=== PATIENT | male | born 1965 | race Caucasian/White ===

== ENCOUNTER → 2021-09-21 10:00 | Outpatient (BNVA) | payer OTHER, SELFPAY | PROVIDERS: Visit Provider Nurse Practitioner Family | DX: Z20.822 Contact with and (suspected) exposure to COVID-19 (principal) | CPT/HCPCS: 87635 ==

== ENCOUNTER 2021-09-27 14:15 | Outpatient (CLI) | payer SELFPAY ==
[2021-09-27 08:53] VITALS: BMI 30.4
[2021-09-27 16:13] VITALS: BP 118/79; PULSE 96; RESP 20; TEMP 36.9; O2SAT 95
== END 2021-09-27 14:16 | disposition home or self-care (01) ==
LOC: OPS 14:17
PROVIDERS: Visit Provider Nurse Practitioner Family
DX: U07.1 COVID-19 (principal)
CPT/HCPCS: 96365

== ENCOUNTER → 2022-03-14 15:31 | Outpatient (BNVA) | payer OTHER, SELFPAY | PROVIDERS: Visit Provider Nurse Practitioner Family | DX: R50.9 Fever, unspecified (principal); R05.9 Cough, unspecified; J98.8 Other specified respiratory disorders | CPT/HCPCS: 71046; 80053; 85025; 87400; 87635 ==

== ENCOUNTER → 2022-03-15 11:19 | Outpatient (BNVA) | payer OTHER, SELFPAY | PROVIDERS: Visit Provider Nurse Practitioner Family | DX: R50.9 Fever, unspecified (principal); R05.9 Cough, unspecified; J98.8 Other specified respiratory disorders; Z20.822 Contact with and (suspected) exposure to COVID-19 | CPT/HCPCS: 87635 ==

== ENCOUNTER 2024-10-30 16:56 | Inpatient (IN) | payer OTHER, SELFPAY ==
[2024-10-30] VITALS (21 sets, daily range): BP systolic 144–166; BP diastolic 85–94; PULSE 107–128; RESP 2–56; TEMP 37.1–38.2; O2SAT 85–95; BMI 28.8; BMI 29.2
--- NOTE | 2024-10-30 17:01 | ECG_ITS ---
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 Measurements Intervals [place] Rate: 116 P: 68 MI: 146 QRS: 31 QRSD: 90 T: 41 QT: 289 QTc: 403 Interpretive Statements SINUS TACHYCARDIA MODERATE ST DEPRESSION [0.05+ mV ST DEPRESSION] Compared to ECG 01/29/2017 18:16:26 ST (T wave) deviation now present Sinus rhythm no longer present Electronically Signed On 11-02-2024 08:02:17 COACH by Sal Henao M.D. [email or web address]
--- NOTE | 2024-10-30 17:10 | ED_ITS ---
HPI - SOB/Dyspnea 2 General: Chief Complaint: Shortness of Breath/Dyspnea Stated Complaint: SOB Time Seen by Provider: 10/30/24 17:09 History of Present Illness: HPI Narrative: 59-year-old male presents emergency room in acute respiratory distress. His oxygen saturations are in the 70s on room air and he has been profoundly short of breath for the last 24 hours. 2 weeks ago patient was seen and had influenza A. Subsequently was seen at a hospital in [place] while he was traveling was thought to have a secondary pneumonia and was started on Zithromax and another antibiotic which she believes is likely cefdinir. He completed the course of those antibiotics and began having more symptoms he seen his primary care doctor and was started on Levaquin yesterday. He was also given albuterol and budesonide nebulizers. Despite this he continues to have progressively worsening send symptoms. He does have a moderately productive cough he has not had any hemoptysis no history of any heart failure no history of DVT or PE. Associated symptoms: Reports chest congestion; Deny abdominal pain, chest pain or fever(s) Related Data Home Medications ?Medication ?Instructions ?Recorded ?Confirmed albuterol sulfate 90 mcg/actuation inhalation 10/22/24 10/28/24 aerosol inhaler benzonatate 100 mg capsule mg PO 10/22/24 10/28/24 Previous Rx's ?Medication ?Instructions ?Recorded prednisone 20 mg tablet See Rx Instructions .Route 0 10/22/24 .COMPLEX #14 tabs Nebulizer machine and supplies #1 ea 10/28/24 budesonide 0.5 mg/2 mL suspension 0.5 mg (2 mL) inhala tion BID #60 mL 10/28/24 for nebulization ipratropium 0.5 mg-albuterol 3 mg 3 ml inhalation 6XD PRN shortness 10/28/24 (2.5 mg base)/3 mL nebulization of breath or wheezing #90 mL soln Allergies Allergy/AdvReac Type Severity Reaction Status Date / Time No Known Allergies Allergy Verified 10/30/24 17:08 Review of Systems 2 Const: Denies: fever(s) or chills Card: Denies: chest pain Resp: Reports: dyspnea, wheezing and chest congestion GI: Denies: abdominal pain : Denies: dysuria, urinary frequency or urinary urgency Musc: Denies: neck pain or back pain Skin/Breast: Denies: rash PFSH ED 2 PFSH: Medical History Essential (primary) hypertension Surgical History History of hand surgery History of shoulder surgery left Family History Other Cancer Denies family history of Diabetes Hypertension Stroke Social History Smoking and tobacco/nicotine status: former use of tobacco/nicotine Second hand smoke exposure: No Alcohol intake: never Substance/Drug Use: never Adopted: No Caregiver/support person: No Lives independently: Yes Household members: spouse Housing: House Marital status: Number of children: 2 service: No Current occupational status: employed Do you think of yourself as: Straight/Heterosexual Current gender identity: Male Physical Exam 2 Const: GENERAL APPEARANCE: cooperative ORIENTATION/CONSCIOUSNESS: Yes awake, Yes oriented to person, Yes oriented to place and Yes oriented to time HENMT: COMMON NORMALS: normocephalic, atraumatic and hearing grossly normal bilaterally HEAD & SCALP: normocephalic and atraumatic Resp: EFFORT & INSPECTION: Yes tachypneic, Yes labored and Yes uses accessory muscles AUSCULTATION: rhonchi (Most prominent at left base) and wheezes Cardio: COMMON NORMALS: regular rhythm and No murmurs present (Cardio) R ATE: tachycardic RHYTHM: regular rhythm GI: COMMON NORMALS: Soft to palpation and No hepatosplenomegaly present A USCULTATION: Yes normoactive bowel sounds PALPATION: Yes Soft to palpation, No Tenderness to palpation present (GI), No Guarding due to palpation present (GI) and Yes No hepatosplenomegaly present Extremity: COMMON NORMALS: normal to inspection, capillary refill normal, no clubbing, cyanosis or edema, no calf tenderness and no pedal edema Neuro: SENSORIUM/ORIENTATION: Yes oriented to person, Yes oriented to place and Yes oriented to time Skin: COMMON NORMALS: no rashes or lesions noted GENERAL SKIN EXAM: no rashes or lesions noted Course 2 Vital Signs: Vital signs: Vital Signs Temperature 101.4 F H 10/31/24 04:00 Pulse Rate 116 H 10/31/24 06:17 Respiratory Rate 38 H 10/31/24 06:17 Blood Pressure 155/103 10/31/24 04:00 Pulse Oximetry 93 10/31/24 06:17 Oxygen Delivery Me thod Heated High Flow 10/31/24 06:17 Oxygen Flow Rate 60 10/31/24 06:17 Fraction of Inspir ed Oxygen 60 10/31/24 06:17 MDM - SOB/Dyspnea Medical Decision Making Acute respiratory failure with pneumonia. Patient chest x-ray is appearance of ARDS. Discussed Dr. Hamm will admit to ICU transition him to heated high flow. Labs and imaging reviewed. There is no evidence of PE on the CTA of his chest. Significant leukocytosis. Cultures including sputum and blood have been done. Will initiate on linezolid and cefepime. Lactic acid in normal range. Lab Data 10/31/24 03:18 10/31/24 03:18 Labs/Radiology: Radiology Impressions Chest X-Ray 10/30/24 17:11 IMPRESSION: Extensive bilateral airspace opacities, suggestive of multifocal pneumonia including COVID-19 pneumonia. Chest CTA 10/30/24 17:51 IMPRESSION: 1. Negative for pulmonary embolus. 2. Extensive bilateral consolidative opacities, which may represent extensive pulmonary edema, hemorrhage or acute interstitial pneumonitis. Laboratory Results WBC 20.52 10^3/uL (3.29-11.43) H 10/30/24 17:24 RBC 4.31 10^6/uL (3.85-5.65) 10/30/24 17:24 Hgb 12.50 g/dL (11.27-16.99) 10/30/24 17:24 Hct 39.0 % (37-53) 10/30/24 17:24 MCV 90.5 fl (82-101) 10/30/24 17:24 MCH 29.0 pg (27-33) 10/30/24 17:24 MCHC 32.1 g/dL (30-55) 10/30/24 17:24 RDW 14.8 % (12.1-15.1) 10/30/24 17:24 Plt Count 794 10^3/cmm (157-399) H 10/30/24 17:24 MPV 8.8 fL (7.4-10.4) 10/30/24 17:24 Neut % (Auto) 79.9 % 10/30/24 17:24 Lymph % (Auto) 4.2 % 10/30/24 17:24 Mcmullen % (Auto) 10.1 % 10/30/24 17:24 Eos % (Auto) 1.4 % 10/30/24 17:24 Baso % (Auto) 0.6 % 10/30/24 17:24 Neut # (Auto) 16.38 10^3/uL (1.8-7.7) H 10/30/24 17:24 Lymph # (Auto) 0.9 10^3/uL (0.8-4.8) 10/30/24 17:24 Mcmullen # (Auto) 2.1 10^3/uL (0.2-0.9) H 10/30/24 17:24 Eos # (Auto) 0.3 10^3/uL (0.0-0.8) 10/30/24 17:24 Baso # (Auto) 0.1 10^3/uL (0.0-0.1) 10/30/24 17:24 Nucleated RBC % (auto) 0 % 10/30/24 17: Nucleated RBCs # 0.0 /100WBC 10/30/24 17:24 Specimen Type Arterial 10/30/24 17:11 Sample Site Radial, left 10/30/24 17:11 ABG pH 7.48 (7.35-7.45) H 10/30/24 17:11 ABG pCO2 32.7 mmHg (35-45) L 10/30/24 17:11 ABG pO2 56.6 mmHg (80.0-100.0) L 10/30/24 17:11 ABG HCO3 24.5 mmol/L (22-26) 10/30/24 17:11 ABG O2 Saturation 91.4 10/30/24 17:11 ABG Base Excess 1.5 mmol/L (-2.0-2.0) 10/30/24 17:11 Speedy Test Pos 10/30/24 17:11 A-a O2 Gradient 6.7 mmHg (5-10) 10/30/24 17:11 Hematocrit 37.4 % (42-52) L 10/30/24 17:11 Hgb O2 Saturation 89.1 % (95-100) L 10/30/24 17:11 Carboxyhemoglobin 1.7 %THgb (0.4-20.1) 10/30/24 17:11 Methemoglobin 0.8 % (0.4-1.5) 10/30/24 17:11 Total Hemoglobin 12.2 g/dL (14-18) L 10/30/24 17:11 Sodium 137.0 mmol/L (131-143) 10/30/24 17:11 Potassium 3.9 mmol/L (3.5-5.0) 10/30/24 17:11 Glucose 134.0 mg/dL (70-115) H 10/30/24 17:11 Ionized Calcium 1.2 mmol/L (1.1-1.4) 10/30/24 17:11 O2 Delivery Device Nc 10/30/24 17:11 O2 Liters/Min 5.0 % 10/30/24 17:11 Microwave Oven Assembler ID Walci 10/30/24 17:11 Sodium 142 mmol/L (136-145) 10/30/24 17:24 Potassium 4.9 mmol/L (3.5-5.1) 10/30/24 17:24 Chloride 104 mmol/L (98-107) 10/30/24 17:24 Carbon Dioxide 23 mmol/L (22-29) 10/30/24 17:24 Anion Gap 19.9 (5-19) H 10/30/24 17:24 BUN 14 mg/dL (6-20) 10/30/24 17:24 Creatinine 0.5 mg/dL (0.7-1.2) L 10/30/24 17:24 GFR Calculation 170.8 mL/min (90-130) H 10/30/24 17:24 Glucose 127 mg/dL (65-115) H 10/30/24 17:24 Calculated Osmolality 296 mOsm/kg (285-295) H 10/30/24 17:24 Lactic Acid 2.3 mmol/L (0.5-2.2) H 10/30/24 17:24 Calcium 8.6 mg/dL (8.5-10.5) 10/30/24 17:24 Total Bilirubin 2.7 mg/dL (0.15-1.2) H 10/30/24 17:24 AST 43 U/L (0-40) H 10/30/24 17:24 ALT 120 U/L (0-41) H 10/30/24 17:24 Alkaline Phosphatase 313 U/L (40-130) H 10/30/24 17:24 C-Reactive Protein 251.2 mg/L (0.0-4.9) H 10/30/24 17:26 Total Protein 6.6 g/dL (6.6-8.7) 10/30/24 17:24 Albumin 3.0 g/dL (3.5-5.2) L 10/30/24 17:24 Globulin 3.6 g/dL (1.3-4.6) 10/30/24 17:24 Procalcitonin 0.45 ng/mL (0-0.5) 10/30/24 17:26 Influenza A (PCR) Negative (Negative) 10/30/24 17:40 Influenza Type B (PCR) Negative (Negative) 10/30/24 17:40 RSV (PCR) Negative (Negative) 10/30/24 17:40 SARS-CoV-2 (PCR) Negative (Negative) 10/30/24 17:40 All radiology interpretation(s) finalized by discharge Critical Care Time 2 Critical Care Time: Critical Care Time: Yes Total Critical Care Time: 35 Attestation: The high probability of a clinically significant, sudden or life threatening deterioration of the patient's respiratory system(s) required my full and direct attention, intervention and personal management. The critical care time is as shown. This time is in addition to time spent performing any reported procedures but includes the following: [x] Data and vital sign review and interpretation [x] Patient assessment, examination and intervention [x] Documentation [x] Medication orders and management Discharge Plan Discharge Patient Disposition: Admitted As Inpatient Admit Provider: Minesh Hamm Clinical Impression: Acute hypoxic respiratory failure, Severe sepsis, Pneumonia, Transaminitis, Essential (primary) hypertension Condition: Stable Coding Level of Care Code ED [employer] for Alycia Dias
--- NOTE | 2024-10-30 17:11 | XRR_ITS ---
PROCEDURE INFORMATION: Exam: XR Chest Exam date and time: 10/30/2024 5:16 PM Age: 59 years old Clinical indication: Cough and dyspnea; Additional info: Dyspnea/cough TECHNIQUE: Imaging protocol: Radiologic exam of the chest. Views: 1 view. COMPARISON: CR XR chest 2V* [id number] 03/14/2022 3:30 PM FINDINGS: Lungs: Extensive bilateral airspace opacities. Pleural spaces: Unremarkable. No pleural effusion. No pneumothorax. Heart/Mediastinum: No cardiomegaly. Tortuous thoracic aorta. Bones/joints: Unremarkable. XR/XR chest 1V portable [id number] IMPRESSION: Extensive bilateral airspace opacities, suggestive of multifocal pneumonia including COVID-19 pneumonia.
[2024-10-30 17:22] LABS: ABG PCO2 32.7 mmHg (35-45); ABG PH Result 7.48 (7.35-7.45); Alveolar-Arterial Oxygen Gradi 6.7 mmHg (5-10); Arterial Blood Gas Hematocrit 37.4 % (42-52); Base Excess ABG 1.5 mmol/L (-2.0-2.0); Blood Gas Allen Test Pos; Blood Gas Operator Identificat WALCI; Blood Gas Sample Site Radial, left; Blood Gas Sample Type Arterial; Carboxyhemoglobin 1.7 %THgb (0.4-20.1); HCO3 ABG 24.5 mmol/L (22-26); HGB O2 Sat 89.1 % (95-100); Ionized Calcium Level - ABG 1.2 mmol/L (1.1-1.4); Methemoglobin 0.8 % (0.4-1.5); Oxygen Device NC; Oxygen Saturation ABG 91.4; PO2 ABG 56.6 mmHg (80.0-100.0); Potassium Level - ABG 3.9 mmol/L (3.5-5.0); Total Hemoglobin 12.2 g/dL (14-18)
[2024-10-30 17:45] LABS: Basophils # 0.1 10^3/uL (0.0-0.1); Basophils % 0.6 %; Eosinophils # 0.3 10^3/uL (0.0-0.8); Eosinophils % 1.4 %; Lymphocytes # 0.9 10^3/uL (0.8-4.8); Lymphocytes % 4.2 %; Mean Corpuscular HGB Conc 32.1 g/dL (30-55); Mean Corpuscular Volume 90.5 fl (82-101); Mean Platelet Volume 8.8 fL (7.4-10.4); Monocytes # 2.1 10^3/uL (0.2-0.9); Monocytes % 10.1 %; Neutrophils # 16.38 10^3/uL (1.8-7.7); Neutrophils % 79.9 %; Nucleated Red Blood Cells % 0 %; Platelet Count 794 10^3/cmm (157-399); Red Blood Count 4.31 10^6/uL (3.85-5.65); Red Cell Distribution Width 14.8 % (12.1-15.1); White Blood Count 20.52 10^3/uL (3.29-11.43)
--- NOTE | 2024-10-30 17:49 | PM.HP ---
Providers/Chief Complaint Primary Care Provider: Bertin Jo Chief Complaint: SOB History of Present Illness Kiran Portillo is a 59 year old male with a past medical history significant for hypertension who presents to the emergency department with shortness of breath. Patient reports onset 3 weeks ago. He states he was diagnosed with influenza A infection. He states for the first week he was sick but was improving by the end of the first week. He states after about a week he got significantly worse. He describes symptoms of shortness of breath, cough, dyspnea, fatigue, malaise, and persistent fevers. Has been seen multiple times first in [facility] and then multiple times at the [facility]. He has been treated with azithromycin, doxycycline and Levaquin. He is also on prednisone. Exertion worsens symptoms. Rest improves. Denies other alleviating or aggravating factors. Denies GI complaints. Upon his presentation to the emergency department, patient was found to be hypoxic on room air. He was placed on oxygen and eventually required a nonrebreather to bring him to normal SpO2 saturations. He denies prior home oxygen needs. Denies known underlying lung disease. He notes significant pneumonia back in 2021 following a COVID-19 infection. Reports a remote history of cigarette use. Reports some transient use of a vape as well. He was found to be significantly tachycardic, tachypneic, and hypertensive. Labs were significant for ABG confirming hypoxia with PaO2 of 56.6 mmHg, leukocytosis, and transaminitis. Chest x-ray shows significant bilateral pneumonia. CT PE is pending at time of evaluation. Review of Systems Narrative: A complete review of systems was obtained and is negative except as stated in HPI. Medications/Allergies Home Medications ?Medication ?Instructions ?Recorded ?Confirmed ?Last Taken ?Type albuterol sulfate 90 mcg/actuation inhalation 10/22/24 10/28/24 Unknown History aerosol inhaler benzonatate 100 mg capsule mg PO 10/22/24 10/28/24 Unknown History prednisone 20 mg tablet See Rx Instructions .Route 10/22/24 10/28/24 Unknown Rx .COMPLEX #14 tabs Nebulizer machine and supplies #1 ea 10/28/24 10/28/24 Unknown Rx budesonide 0.5 mg/2 mL suspension 0.5 mg (2 mL) inhalation BID #60 mL 10/28/24 10/28/24 Unknown Rx for nebulization ipratropium 0.5 mg-albuterol 3 mg 3 ml inhalation 6XD PRN shortness 10/28/24 10/28/24 Unknown Rx (2.5 mg base)/3 mL nebulization of breath or wheezing #90 mL soln Allergies Allergy/AdvReac Type Severity Reaction Status Date / Time No Known Allergies Allergy Verified 10/30/24 17:08 PFSH Acute PFSH: Medical History Essential (primary) hypertension Surgical History History of hand surgery History of shoulder surgery left Family History Other Cancer Denies family history of Diabetes Hypertension Stroke Social History Smoking and tobacco/nicotine status: former use of tobacco/nicotine Second hand smoke exposure: No Alcohol intake: never Substance/Drug Use: never Adopted: No Caregiver/support person: No Lives independently: Yes Household members: spouse Housing: House Marital status: Number of children: 2 service: No Current occupational status: employed Do you think of yourself as: Straight/Heterosexual Current gender identity: Male Vitals/I&O/Wt Last Vital Signs Temp 98.8 F 10/30/24 17:04 Pulse 121 H 10/30/24 17:04 Resp 30 H 10/30/24 17:04 BP 160/88 10/30/24 17:04 Pulse Ox 85 L 10/30/24 17:04 O2 Del Method Room Air 10/30/24 17:04 Weight last 48 hrs Weight 88.451 kg Physical Exam Narrative: General: Patient is awake. Ill-appearing. Head: Normocephalic. Atraumatic. EOM intact. Dry mucous membranes Neck: No JVD. Cardiovascular: Tachycardic with regular rhythm. No gallops. No murmurs. No peripheral edema. Lungs: Bilateral rhonchi, increased work of breathing, conversational dyspnea, no crackles or wheezes. Use of accessory muscles with talking. On supplemental support. Skin: No jaundice. No rashes. Abdomen: Normal bowel sounds, abdomen soft and nontender. Genito Urinary: Genital exam not performed since complaints not related. Rectal: Rectal exam not performed since no symptoms indicated blood loss. Extremities: No cyanosis or clubbing. Musculoskeletal: No swollen or erythematous joints. Neurological: Moves all 4 extremities. No myoclonus. Data 10/30/24 17:24 10/30/24 17:24 Micro: Microbiology 10/30/24 17:24 Blood Culture - Preliminary Blood SPECIMEN COLLECTED 10/30/24 17:32 Blood Culture - Preliminary Blood SPECIMEN COLLECTED A&P Assessment and plan (1) Severe sepsis: Severe sepsis with endorgan damage of acute hypoxic respiratory failure SIRS: Tachycardic, tachypneic, leukocytosis Source: Bilateral community-acquired pneumonia Lactic acidosis noted Panculture Start broad-spectrum antibiotics Hold off on IV fluid bolus due to hypertensive urgency and risk of worsening blood pressure Admit to intensive care unit (2) Acute hypoxic respiratory failure: Acute hypoxic respiratory failure currently requiring nonrebreather mask Patient drops into the 80s upon sitting up in bed, he may need escalation of respiratory support Treat underlying severe pneumonia Encourage pulmonary toilet Scheduled Mucinex Aerobika Supportive care CT scan to evaluate for possible VTE (3) Pneumonia: Severe bilateral community-acquired pneumonia Bacterial on recent influenza infection phenomena MRSA screening Broad-spectrum robotics as above Check bacterial antigens Check inflammatory markers (4) Hypertensive urgency: Blood pressure significantly elevated in the ED, he is at risk for shock though with his severe sepsis Will only intervene if blood pressure remains markedly elevated after leaving the ED Monitor blood pressures closely Hydralazine as needed (5) Thrombocytosis: Severe thrombocytosis likely refractory from sepsis Trend levels If it stays elevated may consider ASA therapy (6) Transaminitis: Suspect secondary to sepsis Trend levels Avoid hepatotoxins Plan DVT prophylaxis: Lovenox CODE STATUS: Full code PDMP PDMP Reviewed: Not Reviewed Attestations Medical Necessity Statement*: Patient presents with shortness of breath, found to have severe sepsis with acute hypoxic respiratory failure, thrombocytosis, transaminitis, hypertensive urgency, and pneumonia with expected hospitalization to cross 2 midnights for broad-spectrum IV antibiotics, respiratory support, further workup, and supportive care. Coding Level of Care Code Acute Code for [facility] Fwd Diagnoses Severe sepsis A41.9; R65.20 Acute hypoxic respiratory failure J96.01 Pneumonia J18.9 Hypertensive urgency I16.0 Thrombocytosis D75.839 Transaminitis R74.01
--- NOTE | 2024-10-30 17:51 | CTR_ITS ---
PROCEDURE INFORMATION: Exam: CTA Chest With Contrast Exam date and time: 10/30/2024 6:29 PM Age: 59 years old Clinical indication: Shortness of breath; Additional info: [place] TECHNIQUE: Imaging protocol: Computed tomographic angiography of the chest with contrast. Exam focused on the arteries. 3D rendering (Not supervised by radiologist): MIP and/or 3D reconstructed images were created by the technologist. Radiation optimization: All CT scans at this facility use at least one of these dose optimization techniques: automated exposure control; mA and/or kV adjustment per patient size (includes targeted exams where dose is matched to clinical indication); or iterative reconstruction. Contrast material: OMNIPAQUE 350; Contrast volume: 95 ml; Contrast route: INTRAVENOUS (IV); COMPARISON: CR (CHEST, ) 10/30/2024 5:16 PM RADIATION DOSE METRICS: Total DLP (mGy-cm): 437.3 FINDINGS: Pulmonary arteries: Negative for pulmonary embolus. Aorta: Unremarkable. No aortic aneurysm. No aortic dissection. Lungs: Unremarkable. No consolidation. No masses. Pleural spaces: Unremarkable. No pneumothorax. No pleural effusion. Heart: Unremarkable. No cardiomegaly. No pericardial effusion. Lymph nodes: Multiple calcified mediastinal lymph nodes are present. Diaphragm: Small hiatal hernia. Spleen: Calcified granulomas within the spleen. Bones/joints: Unremarkable. No acute fracture. Soft tissues: Unremarkable. Other findings: Extensive bilateral consolidative opacities. CT/CT angio chest PE protcl [id number] IMPRESSION: 1. Negative for pulmonary embolus. 2. Extensive bilateral consolidative opacities, which may represent extensive pulmonary edema, hemorrhage or acute interstitial pneumonitis.
[2024-10-30 18:08] LABS: Alanine Aminotransferase 120 U/L (0-41); Alkaline Phosphatase 313 U/L (40-130); Anion Gap 19.9 (5-19); Aspartate Amino Transferase 43 U/L (0-40); Blood Urea Nitrogen 14 mg/dL (6-20); Calcium 8.6 mg/dL (8.5-10.5); Carbon Dioxide 23 mmol/L (22-29); Chloride 104 mmol/L (98-107); Globulin 3.6 g/dL (1.3-4.6); Glomerular Filtration Rate 170.8 mL/min (90-130); Glucose 127 mg/dL (65-115); Osmolality Calculated 296 mOsm/kg (285-295); Potassium 4.9 mmol/L (3.5-5.1); Sodium 142 mmol/L (136-145); Total Bilirubin 2.7 mg/dL (0.15-1.2); Total Protein 6.6 g/dL (6.6-8.7)
[2024-10-30 18:09] LABS: Lactic Sepsis W/Reflex 2.3 mmol/L (0.5-2.2)
[2024-10-30 18:31] LABS: Influenza A NEGATIVE (Negative); Influenza B NEGATIVE (Negative); Respiratory Syncytial Virus Ce NEGATIVE (Negative); SARS-CoV-2 PCR NEGATIVE (Negative)
[2024-10-30] MEDS: iohexol 350 mg/mL 500 mL Btl (per mL) IV (18:41)
--- NOTE | 2024-10-30 18:53 | PC.NURSE ---
Assumed care from Valarie LANDAVERDE at shift change.
[2024-10-30] MEDS: cefepime 2,000 mg SDV 2000 MG IVP (19:11)
[2024-10-30] MEDS: sodium chloride 0.9% 1,000 ML 200 ML IV (19:12)
[2024-10-30] MEDS: linezolid premix 600 MG/300 ML PREMIX 300 MG IV (19:13)
[2024-10-30 19:28] LABS: Reflex Lactate Order REFLEX LACTIC ORDERD
[2024-10-30 20:44] LABS: C Reactive Protein 251.2 mg/L (0.0-4.9)
[2024-10-30 20:51] LABS: Procalcitonin 0.45 ng/mL (0-0.5)
[2024-10-30] MEDS: enoxaparin 40 mg/0.4 mL Syringe SUBCUT (21:30)
[2024-10-30 21:34] LABS: Lactic Acid level (Lactate) 2.1 mmol/L (0.5-2.2)
[2024-10-30 22:56] LABS: MRSA PCR OZH (swab) NOT DETECTED (Negative)
[2024-10-30] MEDS: acetaminophen 325 mg Tablet 650 MG PO (23:42)
[2024-10-31] VITALS (49 sets, daily range): BP systolic 114–166; BP diastolic 76–103; PULSE 86–120; RESP 0–54; TEMP 36.8–38.6; O2SAT 84–99
[2024-10-31] MEDS: cefepime 2,000 mg SDV 2000 MG IVP ×3 (02:25→17:16)
[2024-10-31 03:44] LABS: Basophils # 0.1 10^3/uL (0.0-0.1); Basophils % 0.6 %; Eosinophils # 0.6 10^3/uL (0.0-0.8); Eosinophils % 2.8 %; Hematocrit 33.6 % (37-53); Lymphocytes # 1.2 10^3/uL (0.8-4.8); Lymphocytes % 5.6 %; Mean Corpuscular HGB Conc 33.3 g/dL (30-55); Mean Corpuscular Hemoglobin 29.7 pg (27-33); Mean Corpuscular Volume 89.1 fl (82-101); Monocytes # 2.2 10^3/uL (0.2-0.9); Neutrophils # 16.77 10^3/uL (1.8-7.7); Nucleated Red Blood Cells % 0 %; Platelet Count 660 10^3/cmm (157-399); Red Blood Count 3.77 10^6/uL (3.85-5.65); Red Cell Distribution Width 14.7 % (12.1-15.1); White Blood Count 21.79 10^3/uL (3.29-11.43)
[2024-10-31 04:13] LABS: Alanine Aminotransferase 88 U/L (0-41); Albumin Level 2.4 g/dL (3.5-5.2); Alkaline Phosphatase 241 U/L (40-130); Anion Gap 17.3 (5-19); Aspartate Amino Transferase 29 U/L (0-40); Blood Urea Nitrogen 14 mg/dL (6-20); Calcium 7.7 mg/dL (8.5-10.5); Carbon Dioxide 23 mmol/L (22-29); Chloride 100 mmol/L (98-107); Creatinine Clr Calc Pharmacy 178.6233; Globulin 3.5 g/dL (1.3-4.6); Glomerular Filtration Rate 170.8 mL/min (90-130); Glucose 98 mg/dL (65-115); Magnesium 1.6 mg/dL (1.7-2.3); Osmolality Calculated 282 mOsm/kg (285-295); Phosphorus 2.8 mg/dL (2.5-4.5); Potassium 4.3 mmol/L (3.5-5.1); Sodium 136 mmol/L (136-145); Total Bilirubin 2.9 mg/dL (0.15-1.2); Total Protein 5.9 g/dL (6.6-8.7)
[2024-10-31] MEDS: albuterol 2.5 mg/3 mL Neb INHALATION ×5 (06:16→20:19)
[2024-10-31] MEDS: budesonide 0.5 mg/2 mL Neb INHALATION ×3 (06:17→20:19)
[2024-10-31] MEDS: linezolid premix 600 MG/300 ML PREMIX 300 MG IV ×2 (06:34→18:59)
[2024-10-31] MEDS: acetaminophen 325 mg Tablet 650 MG PO (07:15)
--- NOTE | 2024-10-31 07:23 | PC.NURSE ---
Notified Dr. Hamm and Ced, RT of patients increased work of breathing, shortness of breath, and tachypnea.
[2024-10-31] MEDS: magnesium sulfate premix 2 GM/50 ML PIGGYBACK IV (07:55)
[2024-10-31] MEDS: morphine 4 mg/mL SDV 1 mL 2 MG IVP ×4 (07:56→22:26)
[2024-10-31] MEDS: guaiFENesin 600 mg Tablet 1200 MG PO ×2 (07:58→17:17)
[2024-10-31] MEDS: ondansetron 2 mg/ML SDV 2 mL 4 MG IVP (08:03)
[2024-10-31] MEDS: methylPREDNISolone sod succ 40 mg SDV IVP (08:03)
[2024-10-31] MEDS: dextrose 5%-sod chloride 0.9% 1,000 ML 125 ML IV (08:08)
[2024-10-31 08:21] LABS: NT Pro B Type Natriuretic Pept 409 pg/mL (0-125)
[2024-10-31] MEDS: LORazepam 2 mg/mL INJ 1 mL 0.5 MG IVP (08:42)
--- NOTE | 2024-10-31 09:09 | PC.NURSE ---
Dr. Hamm and RT to bedside, 2mg morphine given IVP 2 grams magnesium started IV, D5ns started at 125ml/hr, zofran given IV for nausea after morphine, steroids given IVP. Assisted up to chair at bedside, placed on bipap per RT. Continued to have respiratory rate in the 50s. Ativan 0.5mg given IVP. Resting in chair at bedside, current respiratory rate in the 30s and less labored. O2 sat currently 95%.
--- NOTE | 2024-10-31 09:12 | PC.PHAR ---
Spouse states that when pt is well, he takes no medications at all.
--- NOTE | 2024-10-31 10:20 | USCV_ITS ---
Kiran Portillo Age: 59 Gender: M : 1965 Exam Date: 10/31/2024 14:17 Ordering Phys: Minesh Hamm MD Technologist: Exam Location: [facility] Indication: ef tach BP: 114 / 79 HR: 97 Rhythm: Sinus Technical Quality: Adequate MEASUREMENTS (Male / Female) Normal Values 2D ECHO LV Diastolic Diameter PLAX 4.5 cm 4.2 - 5.9 / 3.9 - 5.3 cm IVS Diastolic Thickness 1.3 cm 0.6 - 1.0 / 0.6 - 0.9 cm IVS Systolic Thickness 1.3 cm LVPW Diastolic Thickness 1.3 cm 0.6 - 1.0 / 0.6 - 0.9 cm LVPW Systolic Thickness 1.6 cm LVOT Diameter 2.0 cm LV Ejection Fraction 2D Teich 69.9 % LV Ejection Fraction MOD 4C 50.8 % LV Ejection Fraction MOD 2C 71.5 % LV Ejection Fraction 2C AL 71.3 % LA Diameter 3.4 cm RA Systolic Volume 4C AL 58.4 ml RA Systolic Volume 4C MOD 57.2 ml Aorta at Sinotubular Diameter 2.8 cm M-MODE LA Ao Ratio MM 1.3 AV Cusp Separation MM 2.2 cm DOPPLER AV Peak Velocity 174.0 cm/s LVOT Peak Velocity 134.0 cm/s AV Area Cont Eq vti 3.1 cm squared AV Area Cont Eq pk 2.5 cm squared MV Area PHT 4.6 cm squared Mitral E to A Ratio 1.4 TV Peak Velocity 149.0 cm/s TR Peak Velocity 152.0 cm/s TR Peak Gradient 9.2 mmHg TV Peak E Velocity 101.0 cm/s PV Peak Velocity 130.0 cm/s FINDINGS Left Ventricle Normal left ventricular size, systolic function and wall thickness, with no regional wall motion abnormalities. Left ventricular ejection fraction is estimated at 60 %. Normal diastolic function. Right Ventricle The right ventricle is normal in size and function. Right Atrium The right atrium is normal in size. Left Atrium The left atrium is normal in size. Mitral Valve Mildly thickened mitral valve. No mitral valve stenosis. Mild mitral valve regurgitation. Aortic Valve Structurally normal aortic valve without significant sclerosis or stenosis. There is no aortic regurgitation. Tricuspid Valve Mild tricuspid valve regurgitation. Pulmonic Valve Structurally normal pulmonic valve without significant stenosis. There is no pulmonic regurgitation. Pericardium Normal pericardium without effusion. Aorta Normal ascending aorta dimension. IVC The inferior vena cava appears normal. CONCLUSIONS Normal left ventricular size, systolic function and wall thickness, with no regional wall motion abnormalities. Left ventricular ejection fraction is estimated at 60 %. Normal diastolic function. Mildly thickened mitral valve. No mitral valve stenosis. Mild mitral valve regurgitation. There is no pericardial effusion. Right atrial pressure is around 5 mm of mercury. Rickie Pugh MD (Electronically Signed) Final Date: 04 November 2024 19:47 S
[2024-10-31 11:22] LABS: Troponin T (5th) Once 29 ng/L (0-15)
--- NOTE | 2024-10-31 12:08 | P.PN_ITS ---
Subjective 2 Subjective: Patient is respiratory status continued to worsen overnight. He is on high flow oxygen this morning. He complains of shortness of breath and inability to catch his breath. Reports persistent cough. Remains tachycardic and febrile. He remains severely septic. Discussed initiation of noninvasive mechanical ventilation to augment his breathing. He is agreeable. Discussed plan of care. Medications: Reviewed: Yes Vitals/I&O/Wt Last Vital Signs Temp 101.4 F H 10/31/24 08:00 Pulse 92 10/31/24 11:49 Resp 28 H 10/31/24 11:44 BP 148/95 10/31/24 08:00 Pulse Ox 94 10/31/24 11:46 O2 Del Method BiPAP 10/31/24 11:44 O2 Flow Rate 60 10/31/24 06:17 FiO2 50 10/31/24 11:46 10/30/24 10/31/24 10/31/24 22:59 06:59 14:59 Intake Total 300 / 300 1000 / 1300 300 / 300 Balance 300 / 300 1000 / 1300 300 / 300 Weight last 48 hrs Weight 90 kg Weight 90 kg Weight 88.451 kg Physical Exam 2 Narrative: General: Patient is awake. Ill-appearing, appears worse than yesterday. In moderate respiratory distress. Head: Normocephalic. Atraumatic. EOM intact. Neck: No JVD. Cardiovascular: Tachycardic with regular rhythm. No gallops. No murmurs. Lungs: Bilateral rhonchi, increased work of breathing, conversational dyspnea. No wheezing. Use of accessory muscles with talking. On supplemental support. SpO2 in the high 80s. Skin: No jaundice. No rashes. Abdomen: Normal bowel sounds, abdomen soft and nontender. Extremities: No cyanosis or clubbing. Musculoskeletal: No swollen or erythematous joints. Neurological: Moves all 4 extremities. No myoclonus. Data 10/31/24 03:18 10/31/24 03:18 Micro: Microbiology 10/31/24 02:10 Bacterial Antigens - Final Urine,Voided 10/30/24 21:43 Gram Stain - Final Sputum - Expectorated Sputum 10/30/24 17:24 Blood Culture - Preliminary Blood SPECIMEN COLLECTED 10/30/24 17:32 Blood Culture - Preliminary Blood SPECIMEN COLLECTED A&P Assessment and plan (1) Severe sepsis: Severe sepsis with endorgan damage of acute hypoxic respiratory failure SIRS: Tachycardic, tachypneic, leukocytosis Source: Bilateral community-acquired pneumonia He remained severely septic Additional 1 L bolus today Following cultures Continue cefepime and linezolid (2) Acute hypoxic respiratory failure: Acute hypoxic respiratory failure And respiratory distress currently Proceed to initiate noninvasive mechanical ventilation Treat underlying severe pneumonia Encourage pulmonary toilet Scheduled Mucinex Aerobika Supportive care CT imaging reviewed, no PE, severe pneumonia Check cardiac enzymes Check cardiac function with echo (3) Pneumonia: Severe bilateral community-acquired pneumonia Bacterial on recent influenza infection phenomena Antibiotic treatment as above (4) Hypertensive urgency: Blood pressure remains elevated but improved Monitor blood pressures closely Hydralazine as needed (5) Thrombocytosis: Severe thrombocytosis likely secondary to sepsis, is improving Trend levels If it stays elevated may consider ASA therapy (6) Transaminitis: Suspect secondary to sepsis Trend levels Avoid hepatotoxins Plan DVT prophylaxis: Lovenox CODE STATUS: Full code PDMP PDMP Reviewed: Not Reviewed Attestations 2 Medical Necessity Statement*: Patient remains severely septic with worsening respiratory status for which she requires ongoing hospitalization for initiation of noninvasive mechanical ventilation, treatment of sepsis, IV antibiotics, and supportive care. Critical Care Time: The high probability of a clinically significant, sudden or life threatening deterioration of the patient's circulatory, respiratory system(s) required my full and direct attention, intervention and personal management. The critical care time is as shown. This time is in addition to time spent performing any reported procedures but includes the following: [x] Data and vital sign review and interpretation [x] Patient assessment, examination and intervention [x] Documentation [x] Medication orders and management Critical Care Time (min): 35 Coding Level of Care Code Acute Code for [facility] Fwd Diagnoses Severe sepsis A41.9; R65.20 Acute hypoxic respiratory failure J96.01 Pneumonia J18.9 Hypertensive urgency I16.0 Thrombocytosis D75.839 Transaminitis R74.01
[2024-10-31] MEDS: enoxaparin 40 mg/0.4 mL Syringe SUBCUT (20:54)
--- NOTE | 2024-10-31 22:19 | PC.NURSE ---
Placed patient upright and on HHF 55L/60%. Patient coughed profuse amount of phlegm out, mostly clear. Saturation maintained 82%-85% this way between coughing, dropping to 78 when coughing. Patient resumed Bipap@60% after about 5 minutes of coughing and clearing airway.
[2024-11-01] VITALS (37 sets, daily range): BP systolic 90–156; BP diastolic 58–97; PULSE 71–116; RESP 21–40; TEMP 36.8–37.3; O2SAT 89–100
[2024-11-01] MEDS: albuterol 2.5 mg/3 mL Neb INHALATION ×7 (00:37→23:23)
[2024-11-01] MEDS: cefepime 2,000 mg SDV 2000 MG IVP (01:25)
[2024-11-01 03:27] LABS: ABG PCO2 48.5 mmHg (35-45); ABG PH Result 7.39 (7.35-7.45); Arterial Blood Gas Hematocrit 32.2 % (42-52); Base Excess ABG 3.7 mmol/L (-2.0-2.0); Blood Gas Operator Identificat SAM; Blood Gas Sample Site Brachial, right; Blood Gas Sample Type Arterial; HCO3 ABG 29.4 mmol/L (22-26); Oxygen Device BIPAP; PO2 FiO2 Ratio Arterial Blood 231
--- NOTE | 2024-11-01 04:27 | XRR_ITS ---
PROCEDURE INFORMATION: Exam: XR Chest Exam date and time: 11/01/2024 4:41 AM Age: 59 years old Clinical indication: Shortness of breath; Additional info: Worsening respirtory function TECHNIQUE: Imaging protocol: Radiologic exam of the chest. Views: 1 view. COMPARISON: CT angio chest PE protcl [id number] 10/30/2024 6:29 PM FINDINGS: Lungs: Low lung volumes. Slightly worsened diffuse right lung airspace disease. Persistent left mid and lower lung zone airspace disease without significant change. Pleural spaces: Unremarkable. No pleural effusion. No pneumothorax. Heart/Mediastinum: Unremarkable. No cardiomegaly. Bones/joints: Unremarkable. XR/XR chest 1V portable [id number] IMPRESSION: Slightly worsened diffuse right lung airspace disease. Persistent left mid and lower lung zone airspace disease without significant change.
[2024-11-01 04:36] LABS: Basophils # 0.1 10^3/uL (0.0-0.1); Basophils % 0.3 %; Eosinophils % 0.2 %; Hematocrit 33.6 % (37-53); Lymphocytes # 1.1 10^3/uL (0.8-4.8); Lymphocytes % 4.6 %; Mean Corpuscular HGB Conc 31.8 g/dL (30-55); Mean Corpuscular Hemoglobin 28.8 pg (27-33); Mean Corpuscular Volume 90.6 fl (82-101); Mean Platelet Volume 8.8 fL (7.4-10.4); Monocytes # 2.3 10^3/uL (0.2-0.9); Monocytes % 9.6 %; Neutrophils # 19.67 10^3/uL (1.8-7.7); Neutrophils % 82.7 %; Nucleated Red Blood Cells % 0 %; Platelet Count 748 10^3/cmm (157-399); Red Blood Count 3.71 10^6/uL (3.85-5.65); Red Cell Distribution Width 14.8 % (12.1-15.1); White Blood Count 23.75 10^3/uL (3.29-11.43)
[2024-11-01 05:09] LABS: C Reactive Protein 256.8 mg/L (0.0-4.9)
[2024-11-01 05:12] LABS: Alanine Aminotransferase 75 U/L (0-41); Albumin Level 2.5 g/dL (3.5-5.2); Alkaline Phosphatase 210 U/L (40-130); Anion Gap 16.1 (5-19); Aspartate Amino Transferase 32 U/L (0-40); Blood Urea Nitrogen 15 mg/dL (6-20); Calcium 8.4 mg/dL (8.5-10.5); Carbon Dioxide 27 mmol/L (22-29); Chloride 97 mmol/L (98-107); Creatinine Clr Calc Pharmacy 127.5881; Globulin 3.9 g/dL (1.3-4.6); Glomerular Filtration Rate 115.8 mL/min (90-130); Glucose 118 mg/dL (65-115); Magnesium 2.4 mg/dL (1.7-2.3); Osmolality Calculated 282 mOsm/kg (285-295); Phosphorus 3.5 mg/dL (2.5-4.5); Potassium 5.1 mmol/L (3.5-5.1); Sodium 135 mmol/L (136-145); Total Protein 6.4 g/dL (6.6-8.7)
[2024-11-01] MEDS: acetaminophen 325 mg Tablet 650 MG PO (06:19)
[2024-11-01] MEDS: linezolid premix 600 MG/300 ML PREMIX 300 MG IV ×2 (06:19→19:12)
--- NOTE | 2024-11-01 06:30 | PC.NURSE ---
Contacted Dr. Martin in reference to patient's increasing respiratory rate and increasing MVe. No new orders at this time.
[2024-11-01] MEDS: meropenem 1,000 mg SDV 1000 MG IVP ×3 (07:37→23:15)
[2024-11-01] MEDS: dexmedeTOMIDine 0.9 % NaCL 400 MCG/100 ML PREMIX IV (08:15)
[2024-11-01] MEDS: budesonide 0.5 mg/2 mL Neb INHALATION ×2 (08:28→20:49)
[2024-11-01] MEDS: guaiFENesin 600 mg Tablet 1200 MG PO ×2 (09:04→17:24)
[2024-11-01] MEDS: aspirin 81 mg EC Tablet PO (09:04)
[2024-11-01] MEDS: methylPREDNISolone sod succ 40 mg/mL INJ IVP ×3 (09:04→20:09)
--- NOTE | 2024-11-01 11:29 | P.PN_ITS ---
Subjective 2 Subjective: Patient remains in persistent respiratory failure and sepsis. Intubation was considered this morning with decision to hold off for now. He remains high risk for needing intubation. He endorses generalized malaise and fatigue. Poor oral intake. Discussed plan of care. Medications: Reviewed: Yes Vitals/I&O/Wt Last Vital Signs Temp 99.0 F 11/01/24 08:00 Pulse 98 11/01/24 11:00 Resp 30 H 11/01/24 11:00 BP 126/72 11/01/24 10:00 Pulse Ox 94 11/01/24 11:00 O2 Del Method Heated High Flow 11/01/24 11:00 O2 Flow Rate 60 11/01/24 11:00 FiO2 60 11/01/24 11:00 10/31/24 11/01/24 11/01/24 22:59 06:59 14:59 Intake Total 1300 / 1650 307.595 / 307.595 Output Total 600 / 600 Balance 1300 / 1650 -600 / 1050 307.595 / 307.595 Weight last 48 hrs Weight 91.093 kg Weight 90 kg Weight 90 kg Weight 88.451 kg Physical Exam 2 Narrative: General: Patient is awake. In moderate distress, although slightly less than yesterday morning. Head: Normocephalic. Atraumatic. EOM intact. Neck: No JVD. Cardiovascular: Tachycardic with regular rhythm. No gallops. No murmurs. Lungs: Bilateral rhonchi, increased work of breathing, conversational dyspnea. No wheezing. Use of accessory muscles with talking. On supplemental support. Skin: No jaundice. No rashes. Abdomen: Normal bowel sounds, abdomen soft and nontender. Extremities: No cyanosis or clubbing. Musculoskeletal: No swollen or erythematous joints. Neurological: Moves all 4 extremities. No myoclonus. Urinary Catheter Management: Jackson: Cath Placed During This Visit: yes Urinary Catheter Date of Insertion: 11/01/24 Urinary Catheter Time of Insertion: 07:56 Data 11/01/24 03:50 11/01/24 03:50 Micro: Microbiology 10/30/24 21:43 Gram Stain - Final Sputum - Expectorated Sputum Sputum Culture - Preliminary 10/30/24 17:24 Blood Culture - Preliminary Blood NEGATIVE TO DATE 10/30/24 17:32 Blood Culture - Preliminary Blood NEGATIVE TO DATE 10/31/24 02:10 Bacterial Antigens - Final Urine,Voided A&P Assessment and plan (1) Severe sepsis: Severe sepsis with endorgan damage of acute hypoxic respiratory failure Following cultures Continue Linezolid Broadened cefepime to Merrem Encourage pulmonary toilet (2) Acute hypoxic respiratory failure: Acute hypoxic respiratory failure BiPAP/HHNC as tolerated Scheduled Mucinex Aerobika Follow up echo results (3) Pneumonia: Severe bilateral community-acquired pneumonia Bacterial on recent influenza infection phenomena Antibiotic treatment as above (4) Hypertensive urgency: Blood pressure remains elevated but improved Monitor blood pressures closely Hydralazine as needed (5) Thrombocytosis: Start low dose aspirin until PLT improves (6) Transaminitis: Suspect secondary to sepsis Trend levels Avoid hepatotoxins Plan DVT prophylaxis: Lovenox CODE STATUS: Full code PDMP PDMP Reviewed: Not Reviewed Attestations 2 Medical Necessity Statement*: Patient requires ongoing hospitalization for IV abx, resp support, bipap, and supportive care. Critical Care Time: The high probability of a clinically significant, sudden or life threatening deterioration of the patient's circulatory, respiratory system(s) required my full and direct attention, intervention and personal management. The critical care time is as shown. This time is in addition to time spent performing any reported procedures but includes the following: [x] Data and vital sign review and interpretation [x] Patient assessment, examination and intervention [x] Documentation [x] Medication orders and management Critical Care Time (min): 45 Coding Level of Care Code Acute Code for [facility] Fwd Diagnoses Severe sepsis A41.9; R65.20 Acute hypoxic respiratory failure J96.01 Pneumonia J18.9 Hypertensive urgency I16.0 Thrombocytosis D75.839 Transaminitis R74.01
[2024-11-01] MEDS: LORazepam 2 mg/mL INJ 1 mL 0.5 MG IVP (14:55)
[2024-11-01] MEDS: morphine 4 mg/mL SDV 1 mL 2 MG IVP ×4 (17:27→23:15)
[2024-11-01] MEDS: dexmedeTOMIDine 0.9 % NaCL 400 MCG/100 ML PREMIX 9.11 MCG IV (19:42)
[2024-11-01] MEDS: enoxaparin 40 mg/0.4 mL Syringe SUBCUT (20:08)
[2024-11-02] VITALS (39 sets, daily range): BP systolic 107–139; BP diastolic 67–101; PULSE 65–113; RESP 20–50; TEMP 36.9–37.3; O2SAT 86–99
[2024-11-02] MEDS: morphine 4 mg/mL SDV 1 mL 2 MG IVP ×2 (02:12→06:06)
[2024-11-02] MEDS: methylPREDNISolone sod succ 40 mg/mL INJ IVP ×3 (03:43→20:31)
--- NOTE | 2024-11-02 04:00 | XRR_ITS ---
PROCEDURE INFORMATION: Exam: XR Chest Exam date and time: 11/02/2024 6:01 AM Age: 59 years old Clinical indication: Other: F/u resp failure; F/u for resp failure. On heated hi flow 02. ; Additional info: Respiratory failure TECHNIQUE: Imaging protocol: Radiologic exam of the chest. Views: 1 view. COMPARISON: CR (CHEST, ) 11/01/2024 4:41 AM FINDINGS: Lungs: Low lung volumes. Patchy multifocal bilateral pulmonary airspace disease with little change from prior. Pleural spaces: Unremarkable. No pleural effusion. No pneumothorax. Heart/Mediastinum: Unremarkable. No cardiomegaly. Bones/joints: Unremarkable. XR/XR chest 1V portable [id number] IMPRESSION: Patchy multifocal bilateral pulmonary airspace disease with little change from prior.
[2024-11-02] MEDS: albuterol 2.5 mg/3 mL Neb INHALATION ×5 (05:01→20:35)
[2024-11-02 05:46] LABS: Basophils % 0.2 %; Hematocrit 29.5 % (37-53); Lymphocytes # 0.7 10^3/uL (0.8-4.8); Lymphocytes % 4.2 %; Mean Corpuscular HGB Conc 32.2 g/dL (30-55); Mean Corpuscular Hemoglobin 29.1 pg (27-33); Mean Corpuscular Volume 90.5 fl (82-101); Mean Platelet Volume 9.2 fL (7.4-10.4); Monocytes # 1.1 10^3/uL (0.2-0.9); Monocytes % 6.1 %; Neutrophils # 15.28 10^3/uL (1.8-7.7); Neutrophils % 87.7 %; Nucleated Red Blood Cells % 0 %; Platelet Count 392 10^3/cmm (157-399); Red Blood Count 3.26 10^6/uL (3.85-5.65); Red Cell Distribution Width 14.7 % (12.1-15.1); White Blood Count 17.44 10^3/uL (3.29-11.43)
[2024-11-02] MEDS: linezolid premix 600 MG/300 ML PREMIX 300 MG IV ×2 (06:06→18:13)
[2024-11-02 06:15] LABS: Alanine Aminotransferase 51 U/L (0-41); Albumin Level 2.4 g/dL (3.5-5.2); Alkaline Phosphatase 175 U/L (40-130); Anion Gap 12.8 (5-19); Aspartate Amino Transferase 26 U/L (0-40); Blood Urea Nitrogen 17 mg/dL (6-20); Calcium 8.2 mg/dL (8.5-10.5); Carbon Dioxide 29 mmol/L (22-29); Chloride 95 mmol/L (98-107); Creatinine Clr Calc Pharmacy 176.3456; Globulin 3.6 g/dL (1.3-4.6); Glomerular Filtration Rate 170.8 mL/min (90-130); Glucose 141 mg/dL (65-115); Magnesium 2.4 mg/dL (1.7-2.3); Osmolality Calculated 278 mOsm/kg (285-295); Phosphorus 3.1 mg/dL (2.5-4.5); Potassium 4.8 mmol/L (3.5-5.1); Sodium 132 mmol/L (136-145); Total Bilirubin 1.5 mg/dL (0.15-1.2)
[2024-11-02 06:17] LABS: Procalcitonin 1.52 ng/mL (0-0.5)
[2024-11-02 06:22] LABS: C Reactive Protein 217.2 mg/L (0.0-4.9)
[2024-11-02] MEDS: dexmedeTOMIDine 0.9 % NaCL 400 MCG/100 ML PREMIX 6.83 MCG IV (06:35)
[2024-11-02] MEDS: meropenem 1,000 mg SDV 1000 MG IVP ×3 (07:43→23:10)
[2024-11-02] MEDS: budesonide 0.5 mg/2 mL Neb INHALATION ×2 (08:10→20:34)
[2024-11-02] MEDS: guaiFENesin 600 mg Tablet 1200 MG PO ×2 (09:06→18:13)
[2024-11-02] MEDS: aspirin 81 mg EC Tablet PO (09:06)
--- NOTE | 2024-11-02 10:14 | PC.NURSE ---
Wasted 20mg Etomidate and 10mg Vecuronium that was in patients room from near intubation.
--- NOTE | 2024-11-02 10:16 | PC.NURSE ---
verified waste of prop and etamadate ,vec
[2024-11-02] MEDS: benzonatate 100 mg Capsule 200 MG PO (10:56)
--- NOTE | 2024-11-02 11:47 | P.PN_ITS ---
Subjective 2 Subjective: Patient remains in respiratory failure. This morning, he reports his breathing is better than the last 2 mornings. Endorses persistent shortness of breath and cough. Denies fevers or chills. Starting to have a little improvement in appetite. Discussed the severity of his illness and suspected prolonged recovery given severe pneumonitis. Discussed plan of care and patient is in agreement. Medications: Reviewed: Yes Vitals/I&O/Wt Last Vital Signs Temp 98.9 F 11/02/24 08:00 Pulse 80 11/02/24 11:16 Resp 28 H 11/02/24 11:16 BP 134/89 11/02/24 09:00 Pulse Ox 91 11/02/24 11:16 O2 Del Method Heated High Flow 11/02/24 11:16 O2 Flow Rate 50 11/02/24 11:16 FiO2 70 11/02/24 11:16 11/01/24 11/02/24 11/02/24 22:59 06:59 14:59 Intake Total 358.394 / 700.000 88.697 / 788.697 300 / 300 Balance 358.394 / 700.000 88.697 / 788.697 300 / 300 Weight last 48 hrs Weight 87.5 kg Weight 91.093 kg Physical Exam 2 Narrative: General: Patient is awake. Appears worn out. Conversational and appropriate. Head: Normocephalic. Atraumatic. EOM intact. Neck: No JVD. Cardiovascular: Rhythm is regular. Rate is now normal range. No gallops. No murmurs. Lungs: Persistent bilateral rhonchi. Breath sounds are somewhat tight. Conversational dyspnea, improved from prior days. On high flow oxygen support. Skin: No jaundice. No rashes. Abdomen: Normal bowel sounds, abdomen soft and nontender. Extremities: No cyanosis or clubbing. Musculoskeletal: No swollen or erythematous joints. Neurological: Moves all 4 extremities. No myoclonus. Urinary Catheter Management: Jackson: Cath Placed During This Visit: yes Urinary Catheter Date of Insertion: 11/01/24 Urinary Catheter Time of Insertion: 07:56 Data 11/02/24 04:37 11/02/24 04:37 Micro: Microbiology 10/30/24 21:43 Gram Stain - Final Sputum - Expectorated Sputum Sputum Culture - Preliminary A&P Assessment and plan (1) Severe sepsis: Severe sepsis with endorgan damage of acute hypoxic respiratory failure Following cultures Continue Linezolid and meropenem Encourage pulmonary toilet (2) Acute hypoxic respiratory failure: Acute hypoxic respiratory failure secondary to pneumonia, influenza, and severe pneumonitis BiPAP/HHNC as tolerated Scheduled Mucinex Aerobika Follow up echo results, still awaiting for these results (3) Pneumonia: Severe bilateral community-acquired pneumonia Bacterial on recent influenza infection phenomena Antibiotic treatment as above (4) Hypertensive urgency: Blood pressure has improved Monitor blood pressures closely Hydralazine as needed (5) Thrombocytosis: Continue aspirin and Lovenox to avoid hyperviscosity and thrombosis (6) Transaminitis: Suspect secondary to sepsis Trend levels Avoid hepatotoxins Plan DVT prophylaxis: Lovenox CODE STATUS: Full code PDMP PDMP Reviewed: Not Reviewed Attestations 2 Medical Necessity Statement*: Patient requires ongoing hospitalization for IV abx, resp support, bipap, hfnc, and supportive care. Critical Care Time: The high probability of a clinically significant, sudden or life threatening deterioration of the patient's circulatory, respiratory system(s) required my full and direct attention, intervention and personal management. The critical care time is as shown. This time is in addition to time spent performing any reported procedures but includes the following: [x] Data and vital sign review and interpretation [x] Patient assessment, examination and intervention [x] Documentation [x] Medication orders and management Critical Care Time (min): 40 Coding Level of Care Code Acute Code for [facility] Fwd Diagnoses Severe sepsis A41.9; R65.20 Acute hypoxic respiratory failure J96.01 Pneumonia J18.9 Hypertensive urgency I16.0 Thrombocytosis D75.839 Transaminitis R74.01
--- NOTE | 2024-11-02 14:25 | PC.NURSE ---
Assisted to prone position, tolerated well.
[2024-11-02] MEDS: enoxaparin 40 mg/0.4 mL Syringe SUBCUT (20:31)
[2024-11-02] MEDS: LORazepam 2 mg/mL INJ 1 mL 0.5 MG IVP (23:10)
[2024-11-03] VITALS (42 sets, daily range): BP systolic 112–161; BP diastolic 64–105; PULSE 66–118; RESP 8–52; TEMP 36.4–37.1; O2SAT 84–99; BMI 27.6
[2024-11-03] MEDS: benzonatate 100 mg Capsule 200 MG PO ×2 (00:36→11:11)
[2024-11-03] MEDS: temazepam 15 mg Capsule PO ×2 (01:38→20:49)
[2024-11-03] MEDS: albuterol 2.5 mg/3 mL Neb INHALATION ×6 (03:57→23:15)
[2024-11-03] MEDS: methylPREDNISolone sod succ 40 mg/mL INJ IVP ×3 (04:05→20:50)
[2024-11-03 04:44] LABS: Basophils % 0.1 %; Eosinophils % 0.1 %; Hematocrit 29.4 % (37-53); Lymphocytes % 5.3 %; Mean Corpuscular Hemoglobin 29.6 pg (27-33); Mean Corpuscular Volume 89.6 fl (82-101); Mean Platelet Volume 8.7 fL (7.4-10.4); Monocytes % 5.7 %; Neutrophils % 86.2 %; Nucleated Red Blood Cells % 0 %; Platelet Count 438 10^3/cmm (157-399); Red Blood Count 3.28 10^6/uL (3.85-5.65); Red Cell Distribution Width 14.8 % (12.1-15.1); White Blood Count 18.09 10^3/uL (3.29-11.43)
[2024-11-03 04:59] LABS: Alanine Aminotransferase 145 U/L (0-41); Albumin Level 2.4 g/dL (3.5-5.2); Alkaline Phosphatase 216 U/L (40-130); Anion Gap 15.1 (5-19); Aspartate Amino Transferase 157 U/L (0-40); Blood Urea Nitrogen 20 mg/dL (6-20); C Reactive Protein 120.2 mg/L (0.0-4.9); Carbon Dioxide 29 mmol/L (22-29); Chloride 97 mmol/L (98-107); Creatinine Clr Calc Pharmacy 146.9546; Globulin 2.8 g/dL (1.3-4.6); Glomerular Filtration Rate 138.4 mL/min (90-130); Glucose 132 mg/dL (65-115); Magnesium 2.5 mg/dL (1.7-2.3); Osmolality Calculated 286 mOsm/kg (285-295); Phosphorus 3.2 mg/dL (2.5-4.5); Potassium 5.1 mmol/L (3.5-5.1); Sodium 136 mmol/L (136-145); Total Bilirubin 1.2 mg/dL (0.15-1.2); Total Protein 5.2 g/dL (6.6-8.7)
[2024-11-03 05:03] LABS: Procalcitonin 0.93 ng/mL (0-0.5)
[2024-11-03] MEDS: meropenem 1,000 mg SDV 1000 MG IVP ×3 (06:36→22:54)
[2024-11-03] MEDS: linezolid premix 600 MG/300 ML PREMIX 300 MG IV ×2 (06:36→18:31)
[2024-11-03] MEDS: budesonide 0.5 mg/2 mL Neb INHALATION ×2 (08:10→19:50)
[2024-11-03] MEDS: aspirin 81 mg EC Tablet PO (08:26)
[2024-11-03] MEDS: guaiFENesin 600 mg Tablet 1200 MG PO ×2 (08:26→17:51)
--- NOTE | 2024-11-03 10:16 | P.PN_ITS ---
Subjective 2 Subjective: Patient reports he had an okay night. Still very short of breath requiring BiPAP and high flow nasal cannula. Has intermittent productive sputum now. Reports appetite was slightly better to eat yesterday but still very poor oral intake. He is agreeable to trying protein shake. Reports he slept okay overnight. Denies other new complaints. Spouse is bedside and very supportive. Medications: Reviewed: Yes Vitals/I&O/Wt Last Vital Signs Temp 98.6 F 11/03/24 08:00 Pulse 106 H 11/03/24 08:30 Resp 47 H 11/03/24 08:30 BP 115/85 11/03/24 08:30 Pulse Ox 84 L 11/03/24 08:30 O2 Del Method Heated High Flow 11/03/24 08:00 O2 Flow Rate 60 11/03/24 08:15 FiO2 60 11/03/24 08:15 11/02/24 11/03/24 11/03/24 22:59 06:59 14:59 Intake Total 660 / 1660 25.992 / 1685.992 800 / 800 Balance 660 / 1660 25.992 / 1685.992 800 / 800 Weight last 48 hrs Weight 85 kg Weight 87.5 kg Physical Exam 2 Narrative: General: Patient is awake. Alert. Pleasant. Head: Normocephalic. Atraumatic. EOM intact. Neck: No JVD. Cardiovascular: Rhythm is regular. Rate is now normal range. No gallops. No murmurs. Lungs: Persistent bilateral rhonchi. Conversational dyspnea. On BiPAP support. Skin: No jaundice. No rashes. Abdomen: Normal bowel sounds, abdomen soft and nontender. Extremities: No cyanosis or clubbing. Musculoskeletal: No swollen or erythematous joints. Neurological: Moves all 4 extremities. No myoclonus. Urinary Catheter Management: Jackson: Cath Placed During This Visit: yes Urinary Catheter Date of Insertion: 11/01/24 Urinary Catheter Time of Insertion: 07:56 Data 11/03/24 04:15 11/03/24 04:15 Micro: Microbiology 10/30/24 21:43 Gram Stain - Final Sputum - Expectorated Sputum Sputum Culture - Final A&P Assessment and plan (1) Severe sepsis: Severe sepsis with endorgan damage of acute hypoxic respiratory failure Following cultures Bacterial antigens are negative Continue Linezolid and meropenem Encourage pulmonary toilet (2) Acute hypoxic respiratory failure: Acute hypoxic respiratory failure secondary to pneumonia, influenza, and severe pneumonitis Continue BiPAP/HHNC Scheduled Mucinex Aerobika Echocardiogram results are still pending to evaluate for any superimposed cardiac dysfunction (3) Pneumonia: Severe bilateral community-acquired pneumonia complicated by severe pneumonitis Bacterial on recent influenza infection phenomena Antibiotic treatment as above Continue systemic steroids (4) Thrombocytosis: Platelet level is significantly improved, just slightly elevated at 438 Continue aspirin (5) Transaminitis: Suspect secondary to sepsis Trend levels Avoid hepatotoxins (6) Hypertensive urgency: Resolved Plan DVT prophylaxis: Lovenox CODE STATUS: Full code PDMP PDMP Reviewed: Not Reviewed Attestations 2 Medical Necessity Statement*: Patient requires ongoing hospitalization for IV abx, resp support, bipap, hfnc, and supportive care. Coding Level of Care Code Acute Code for [facility] Diagnoses Severe sepsis A41.9; R65.20 Acute hypoxic respiratory failure J96.01 Pneumonia J18.9 Thrombocytosis D75.839 Transaminitis R74.01 Hypertensive urgency I16.0
[2024-11-03] MEDS: LORazepam 2 mg/mL INJ 1 mL 0.5 MG IVP (10:58)
[2024-11-03] MEDS: enoxaparin 40 mg/0.4 mL Syringe SUBCUT (20:50)
[2024-11-03] MEDS: morphine 4 mg/mL SDV 1 mL 2 MG IVP ×2 (21:54→23:01)
[2024-11-04] VITALS (37 sets, daily range): BP systolic 126–167; BP diastolic 79–113; PULSE 75–112; RESP 12–52; TEMP 36.2–36.8; O2SAT 85–100
[2024-11-04] MEDS: albuterol 2.5 mg/3 mL Neb INHALATION ×3 (02:57→07:31)
[2024-11-04] MEDS: methylPREDNISolone sod succ 40 mg/mL INJ IVP ×3 (03:42→20:12)
[2024-11-04 05:34] LABS: Basophils # 0.1 10^3/uL (0.0-0.1); Basophils % 0.3 %; Hematocrit 31.1 % (37-53); Lymphocytes # 0.9 10^3/uL (0.8-4.8); Lymphocytes % 4.9 %; Mean Corpuscular HGB Conc 31.5 g/dL (30-55); Mean Corpuscular Hemoglobin 28.7 pg (27-33); Mean Corpuscular Volume 90.9 fl (82-101); Mean Platelet Volume 9.1 fL (7.4-10.4); Monocytes # 1.2 10^3/uL (0.2-0.9); Monocytes % 6.6 %; Neutrophils # 14.34 10^3/uL (1.8-7.7); Neutrophils % 82.4 %; Nucleated Red Blood Cells % 0 %; Platelet Count 517 10^3/cmm (157-399); Red Blood Count 3.42 10^6/uL (3.85-5.65); Red Cell Distribution Width 14.9 % (12.1-15.1); White Blood Count 17.41 10^3/uL (3.29-11.43)
[2024-11-04 05:55] LABS: Alanine Aminotransferase 411 U/L (0-41); Albumin Level 2.4 g/dL (3.5-5.2); Alkaline Phosphatase 236 U/L (40-130); Anion Gap 13.7 (5-19); Aspartate Amino Transferase 222 U/L (0-40); Blood Urea Nitrogen 23 mg/dL (6-20); Calcium 7.8 mg/dL (8.5-10.5); Carbon Dioxide 30 mmol/L (22-29); Chloride 98 mmol/L (98-107); Creatinine Clr Calc Pharmacy 145.0565; Globulin 3.2 g/dL (1.3-4.6); Glomerular Filtration Rate 138.4 mL/min (90-130); Glucose 142 mg/dL (65-115); Magnesium 2.3 mg/dL (1.7-2.3); Osmolality Calculated 290 mOsm/kg (285-295); Phosphorus 3.5 mg/dL (2.5-4.5); Potassium 4.7 mmol/L (3.5-5.1); Sodium 137 mmol/L (136-145); Total Bilirubin 1.1 mg/dL (0.15-1.2); Total Protein 5.6 g/dL (6.6-8.7)
[2024-11-04 06:05] LABS: Procalcitonin 0.61 ng/mL (0-0.5)
[2024-11-04 06:11] LABS: Slide Review Slide Review Perform
[2024-11-04] MEDS: meropenem 1,000 mg SDV 1000 MG IVP ×3 (06:23→22:39)
[2024-11-04] MEDS: linezolid premix 600 MG/300 ML PREMIX 300 MG IV (06:24)
[2024-11-04] MEDS: morphine 4 mg/mL SDV 1 mL 2 MG IVP ×2 (06:25→08:18)
[2024-11-04] MEDS: budesonide 0.5 mg/2 mL Neb INHALATION ×2 (07:31→20:27)
[2024-11-04] MEDS: guaiFENesin 600 mg Tablet 1200 MG PO ×2 (08:17→17:16)
[2024-11-04] MEDS: aspirin 81 mg EC Tablet PO (08:18)
[2024-11-04] MEDS: LORazepam 2 mg/mL INJ 1 mL 0.5 MG IVP (09:10)
[2024-11-04] MEDS: azithromycin 250 mg Tablet 500 MG PO (09:11)
[2024-11-04] MEDS: acetaZOLAMIDE 250 mg Tablet 500 MG PO (09:11)
[2024-11-04] MEDS: FUROsemide 10 mg/mL SDV 10mL 60 MG IVP (09:12)
[2024-11-04 09:18] LABS: Iron 43 ug/dL (59-158); Lactate Dehydrogenase 530 U/L (135-225); Thyroid Stimulating Hormone 0.43 uIU/mL (0.27-4.20); Total Iron Binding Capacity 130 mcg/dl; Unsaturated Iron Binding 87 ug/dL (112-347); Vitamin B12 851 pg/mL (232-1245)
[2024-11-04 09:20] LABS: Estmated Average Glucose 105; Hemoglobin A1C 5.3 % (4.0-6.0)
[2024-11-04] MEDS: levalbuterol 0.63 mg/3 mL Neb INHALATION ×2 (13:55→20:26)
[2024-11-04] MEDS: ipratropium 0.5 mg/2.5 mL Neb INHALATION ×2 (13:55→20:26)
--- NOTE | 2024-11-04 17:46 | PM.PN ---
Subjective Subjective: Hospital course, labs appreciated. Patient seen in ICU with spouse at bedside. Currently sitting at edge of the bed. On 45 L 90% saturating in mid 90s. Patient states he is feeling better today. Denies any nausea, vomiting, headache. States he has been finding it difficult to catch his breath occasionally but today is feeling better. Appreciate hemodynamics. Medications: Reviewed: Yes Vitals/I&O/Wt Last Vital Signs Temp 98.2 F 11/04/24 08:00 Pulse 91 11/04/24 17:21 Resp 35 H 11/04/24 17:21 BP 162/102 11/04/24 16:00 Pulse Ox 94 11/04/24 17:21 O2 Del Method Heated High Flow 11/04/24 13:55 O2 Flow Rate 45 11/04/24 17:21 FiO2 55 11/04/24 17:21 11/04/24 11/04/24 11/04/24 06:59 14:59 22:59 Intake Total 550 / 550 Output Total 1300 / 1300 Balance -750 / -750 Weight last 48 hrs Weight 87.232 kg Weight 85 kg Physical Exam Urinary Catheter Management: Jackson: Cath Placed During This Visit: yes Reason for Continuing Indwelling Catheter: Accurate Measurement of Urinary Output in Critically Ill Patients Urinary Catheter Date of Insertion: 11/01/24 Urinary Catheter Time of Insertion: 07:56 Data 11/04/24 04:47 11/04/24 04:47 Micro: Microbiology 10/30/24 17:24 Blood Culture - Final Blood NO GROWTH AFTER 5 DAYS 10/30/24 17:32 Blood Culture - Final Blood NO GROWTH AFTER 5 DAYS A&P Assessment and plan (1) Severe sepsis: SIRS: Tachycardic, Febrile, Leukocytosis. Present on admission. Source: Pneumonia End organ damage: Respiratory failure Lactic acid elevated on admission. Monitor blood pressures. Keep mean artery pressure 65 mmHg. Follow-up blood culture, urine culture, negative MRSA swab, trend procalcitonin, negative bacterial antigen. Continue with IV meropenem for now. Will plan to finish a 7-day course. MRSA swab negative. For now we will discontinue linezolid. Add azithromycin for atypical coverage. (2) Acute hypoxic respiratory failure: Acute hypoxic respiratory failure secondary to pneumonia, influenza, and severe pneumonitis. 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 Oxygen supplementation keeping saturation over 88%. Wean accordingly. Currently on 45 L 90%. Pulmicort twice daily, ipratropium, Xopenex every 6 hour. Patient is in ARDS. Will plan to keep net negative. IV Lasix 40 mg one-time. Developing mild contraction alkalosis. Will add Diamox 500 mg oral daily. Fluid restriction to less than 1500 cc. Strict input output charting, daily weights. Monitor electrolytes. Out of bed to chair. Aggressive pulmonary toilet with I-S and chest vest. Repeat sputum culture. Wean Solu-Medrol 40 mg Q8 hourly. Check ABG in AM. Continue with IV Ativan 0.5 every 4 hour as needed for air hunger. Morphine 1 mg every 4 hours as needed. Follow-up fungitel, check LDH, histoplasma urine antigen. (3) Pneumonia: Concern for superadded bacterial infection over recent influenza. Treatment as above. (4) Hypertensive urgency: Goal blood pressure less than 140/90 mmHg. Depending on the blood pressures uptitrate accordingly. Start on amlodipine 10 mg oral daily. Getting Lasix as above. Will continue to monitor. (5) Thrombocytosis: Platelet level is significantly improved, Continue aspirin (6) Transaminitis: Suspect secondary to sepsis Check hepatitis panel. Liver ultrasound. (7) ARDS (adult respiratory distress syndrome): Plan DVT prophylaxis: Lovenox CODE STATUS: Full code Protonix OPD prophylaxis Regular diet. PDMP PDMP Reviewed: Not Reviewed Attestations Medical Necessity Statement*: Requires further hospitalization for management of acute hypoxic respiratory failure in setting of ARDS, superadded bacterial infection in setting of recent influenza, hypertension as patient remains on heated high flow/BiPAP dependent Critical Care Time: The high probability of a clinically significant, sudden or life threatening deterioration of the patient's [pulmonary, cardiac] system(s) required my full and direct attention, intervention and personal management. The critical care time is as shown. This time is in addition to time spent performing any reported procedures but includes the following: [x] Data and vital sign review and interpretation [x] Patient assessment, examination and intervention [x] Documentation [x] Medication orders and management Critical Care Time (min): 70 Coding Level of Care Code Critical Care >/= 30 minutes Critical care time (in minutes): 70 The high probability of a clinically significant, sudden or life threatening deterioration, as referenced in this documentation, required my full and direct attention, intervention and personal management. The critical care time shown is in addition to time spent performing any reported separately billable procedures and includes the following: [x] Data and vital sign review and interpretation [x] Patient assessment, examination and intervention [x] Medication orders and management [x] Patient/Family updates as able [x] Care Coordination and Documentation. Other Coding Information This patient has a high probability of clinically significant, sudden or life threatening deterioration of the patient's (neurological/pulmonary/cardiac/renal/ID/endocrine) systems required my full, direct attention, the highest level of physician preparedness for urgent intervention and personal management. I managed/supervised life or organ supporting interventions that required frequent physician assessment. I devoted my full attention in the ICU to the direct care of this patient for the period of time indicated above. Time I spent with family or surrogate(s) is included only if the patient was incapable of providing necessary information or participating in decision making. This time includes the following services provided: Telemetry review Non-mechanical Ventilation Hemodynamic interpretation, assessment and management Review and interpretation of CXR Review and interpretation of lab values Review and interpretation of microbiologic data and culture results Review of medications and administration Review and interpretation of Nutrition requirements and management Discussion of management with other consultants and services Clinical update to family members Diagnoses Severe sepsis A41.9; R65.20 Acute hypoxic respiratory failure J96.01 Pneumonia J18.9 Hypertensive urgency I16.0 Thrombocytosis D75.839 Transaminitis R74.01 ARDS (adult respiratory distress syndrome) J80
--- NOTE | 2024-11-04 17:50 | US_ITS ---
WS: [id number] RIGHT UPPER QUADRANT ULTRASOUND HISTORY: Transaminitis COMPARISON: None available. Liver: 16.5 cm in length. Normal size liver and echogenicity. No bile duct dilatation or mass. Portal Vein: Normal hepatopetal flow with monophasic waveform. Gallbladder: Normally distended gallbladder with no stones or wall thickening. CBD: 0.4 cm Pancreas: Normal size and echogenicity. Right kidney: 11.7 cm in length. Normal size and echogenicity. No hydronephrosis or mass. Aorta and IVC: Unremarkable abdominal aorta and IVC. No ascites. US/US liver [id number] IMPRESSION: Normal right upper quadrant ultrasound.
[2024-11-04] MEDS: enoxaparin 40 mg/0.4 mL Syringe SUBCUT (20:12)
[2024-11-04] MEDS: morphine 4 mg/mL SDV 1 mL 1 MG IVP (21:24)
[2024-11-04] MEDS: temazepam 15 mg Capsule PO (22:40)
[2024-11-05] VITALS (40 sets, daily range): BP systolic 122–158; BP diastolic 78–101; PULSE 73–112; RESP 14–46; TEMP 36.8–37.2; O2SAT 90–99
[2024-11-05] MEDS: ipratropium 0.5 mg/2.5 mL Neb INHALATION ×5 (02:08→20:33)
[2024-11-05] MEDS: levalbuterol 0.63 mg/3 mL Neb INHALATION ×5 (02:09→20:33)
[2024-11-05 04:09] LABS: Hematocrit 34.4 % (37-53); Mean Corpuscular HGB Conc 31.1 g/dL (30-55); Mean Corpuscular Volume 93.2 fl (82-101); Mean Platelet Volume 9.1 fL (7.4-10.4); Platelet Count 556 10^3/cmm (157-399); Red Blood Count 3.69 10^6/uL (3.85-5.65); Red Cell Distribution Width 15.1 % (12.1-15.1)
[2024-11-05] MEDS: methylPREDNISolone sod succ 40 mg/mL INJ IVP ×3 (04:09→20:20)
[2024-11-05 04:25] LABS: Alanine Aminotransferase 426 U/L (0-41); Albumin Level 2.6 g/dL (3.5-5.2); Alkaline Phosphatase 245 U/L (40-130); Anion Gap 14.2 (5-19); Aspartate Amino Transferase 140 U/L (0-40); Blood Urea Nitrogen 18 mg/dL (6-20); Carbon Dioxide 24 mmol/L (22-29); Chloride 102 mmol/L (98-107); Creatinine Clr Calc Pharmacy 176.1014; Globulin 3.4 g/dL (1.3-4.6); Glomerular Filtration Rate 170.8 mL/min (90-130); Glucose 132 mg/dL (65-115); Osmolality Calculated 284 mOsm/kg (285-295); Potassium 5.2 mmol/L (3.5-5.1); Sodium 135 mmol/L (136-145); Total Bilirubin 1.1 mg/dL (0.15-1.2)
[2024-11-05 04:37] LABS: Chol HDL Ratio 4.37 mg/dL (1.0-5.00); Cholesterol 201 mg/dL (0-200); HDL Cholesterol 46 mg/dL (60-100); LDL Cholesterol Calculated 131 mg/dL (50-129); Magnesium 2.3 mg/dL (1.7-2.3); Triglycerides 122 mg/dL (0-150); VLDL Cholestrol Calculation 24 mg/dL (0-30)
[2024-11-05 04:43] LABS: Folate Level 2.9 ng/mL (4.5-32.2)
[2024-11-05 04:51] LABS: Hepatitis A Antibody IgM Non-Reactive (Nonreactive); Hepatitis B Core AB, Total Non-Reactive (Nonreactive); Hepatitis B Surface AB < 3.5 (11.5-1000); Hepatitis B Surface Antigen Non-Reactive (Nonreactive); Hepatitis C Virus Antibody Non-Reactive (Nonreactive)
[2024-11-05 04:57] LABS: Slide Review Slide Review Perform
[2024-11-05 04:57] LABS: ABG PCO2 41.5 mmHg (35-45); ABG PH Result 7.38 (7.35-7.45); Alveolar-Arterial Oxygen Gradi 50.3 mmHg (5-10); Arterial Blood Gas Hematocrit 35.3 % (42-52); Base Excess ABG -0.6 mmol/L (-2.0-2.0); Blood Gas Allen Test Pos; Blood Gas Operator Identificat ED; Blood Gas Sample Site Radial, right; Blood Gas Sample Type Arterial; Carboxyhemoglobin 0.9 %THgb (0.4-20.1); HCO3 ABG 24.6 mmol/L (22-26); HGB O2 Sat 89.6 % (95-100); Ionized Calcium Level - ABG 1.2 mmol/L (1.1-1.4); Methemoglobin 1.3 % (0.4-1.5); Oxygen Saturation ABG 91.6; PO2 ABG 61.8 mmHg (80.0-100.0); PO2 FiO2 Ratio Arterial Blood 87; Potassium Level - ABG 4.3 mmol/L (3.5-5.0); Total Hemoglobin 11.5 g/dL (14-18)
[2024-11-05 04:58] LABS: Absolute Neutrophil 17.5 10^3/cmm (1.4-6.5); Absolute Segmented Neutrophil 17.1 10/cmm (1.6-7.1); Band Neutrophils Absolute 0.4 10^3/cmm (0.0-1.2); Eosinophils 0 %; Lymphocytes 4 %; Monocytes Absolute 0.6 10^3/cmm (0.1-0.6); Platelet Estimate Increased (Normal); Segmented Neutrophils 84 %; Smudge Cells Trace; Total Cells Counted 100 (0-100)
[2024-11-05] MEDS: meropenem 1,000 mg SDV 1000 MG IVP ×3 (06:19→22:46)
[2024-11-05] MEDS: acetaZOLAMIDE 250 mg Tablet 500 MG PO (07:55)
[2024-11-05] MEDS: guaiFENesin 600 mg Tablet 1200 MG PO ×2 (07:56→18:10)
[2024-11-05] MEDS: amlodipine 5 mg Tablet PO (07:56)
[2024-11-05] MEDS: LORazepam 2 mg/mL INJ 1 mL 0.5 MG IVP ×2 (07:57→17:40)
[2024-11-05] MEDS: azithromycin 250 mg Tablet 500 MG PO (07:57)
[2024-11-05] MEDS: aspirin 81 mg EC Tablet PO (07:58)
[2024-11-05] MEDS: budesonide 0.5 mg/2 mL Neb INHALATION ×2 (08:11→20:33)
--- NOTE | 2024-11-05 08:50 | XRR_ITS ---
PROCEDURE INFORMATION: Exam: XR Chest Exam date and time: 11/05/2024 9:00 AM Age: 59 years old Clinical indication: Shortness of breath; Additional info: [place] TECHNIQUE: Imaging protocol: Radiologic exam of the chest. Views: 1 view. COMPARISON: CR (CHEST, ) 11/02/2024 6:01 AM FINDINGS: Lungs: Lung volumes are decreased, unchanged. Diffuse scattered interstitial/ground-glass infiltrates both lung clark somewhat more pronounced in the right mildly improved from previous exam where there is some clearing of more confluent opacities. Findings are nonspecific may be due to multifocal pneumonia or ARDS. Pleural spaces: Unremarkable. No pleural effusion. No pneumothorax. Heart/Mediastinum: Unremarkable. No cardiomegaly. Bones/joints: No acute bony abnormalities detected. XR/XR chest 1V portable [id number] IMPRESSION: Decreased lung volumes with mild improvement of diffuse interstitial/ground-glass infiltrates, nonspecific as discussed above.
[2024-11-05] MEDS: FUROsemide 10 mg/mL SDV 4mL 40 MG IVP (10:07)
[2024-11-05] MEDS: morphine 4 mg/mL SDV 1 mL 1 MG IVP (10:55)
[2024-11-05 15:18] LABS: Anion Gap 18.2 (5-19); Blood Urea Nitrogen 20 mg/dL (6-20); Calcium 8.5 mg/dL (8.5-10.5); Carbon Dioxide 20 mmol/L (22-29); Chloride 102 mmol/L (98-107); Creatinine Clr Calc Pharmacy 174.1944; Glomerular Filtration Rate 170.8 mL/min (90-130); Glucose 209 mg/dL (65-115); Osmolality Calculated 291 mOsm/kg (285-295); Potassium 4.2 mmol/L (3.5-5.1); Sodium 136 mmol/L (136-145)
--- NOTE | 2024-11-05 17:07 | PM.PN ---
Subjective Subjective: patient seen multiple times during the day today. No acute event overnight. Overnight oxygen requirements had gone up to 70%. Today morning on getting out of bed to chair he did desaturate but was able to recover in 15 to 20 minutes. FiO2 back down to 45 L 60%. Otherwise working well with high chest vest incentive spirometry. Appreciate urine output. Appetite appropriate. Denies any nausea, vomiting. Sitting up in chair for most part of the day yesterday. Medications: Reviewed: Yes Vitals/I&O/Wt Last Vital Signs Temp 98.9 F 11/05/24 10:00 Pulse 105 H 11/05/24 16:00 Resp 35 H 11/05/24 16:00 BP 123/82 11/05/24 16:00 Pulse Ox 93 11/05/24 16:00 O2 Del Method Heated High Flow 11/05/24 15:35 O2 Flow Rate 45 11/05/24 15:46 FiO2 60 11/05/24 15:46 11/05/24 11/05/24 11/05/24 06:59 14:59 22:59 Intake Total 200 / 200 Output Total 650 / 2775 2300 / 2300 Balance -650 / -2004 -2099 / -2099 Weight last 48 hrs Weight 85.139 kg Weight 87.232 kg Physical Exam Narrative: General: No acute distress, AO x3, tachypneic, critically sick appearing HEENT: PERRLA, pupils bilaterally equal and reactive Chest: Bilateral bronchial breath sounds all over lung clark with coarse crackles mostly in right upper middle lobe and left lower zone Cardiac: S1-S2 regular, tachycardia, soft pansystolic murmur at apex. Abdomen: Soft, nontender, no organomegaly, bowel sounds present Neuro: No focal deficits, no facial deformity, AO x3, power 5/5 in all limbs Urinary Catheter Management: Jackson: Cath Placed During This Visit: yes Reason for Continuing Indwelling Catheter: Accurate Measurement of Urinary Output in Critically Ill Patients Urinary Catheter Date of Insertion: 11/01/24 Urinary Catheter Time of Insertion: 07:56 Quick SOFA Score: Respiratory Rate: 36 Blood Pressure: 122/85 [place] Coma Scale: 15 qSOFA Score: 1 If qSOFA score 2 or greater, continue: PaO2/FiO2 Ratio (mmHg): 87 Blood Pressure Mean: 97 Bilirubin (mg/dl): 1.1 Platelets (x10?/ml): 556 Creatinine (mg/dl): 0.5 SOFA Score: 4 Evaluation: Current stage of sepsis: sepsis Sepsis stage criteria used: [facility] Sep-1 and Sepsis-3 Crystalloid fluids: no fluids ordered Blood cultures ordered: Yes Possible source: pulmonary Focused Exam: Vital signs: Temp Pulse Pulse Resp Resp BP Pulse Ox 11/05/24 20:30 100 36 H 95 11/05/24 20:30 104 H 38 H 11/05/24 19:36 98.5 F 11/05/24 19:00 105 H 44 H 122/85 90 11/05/24 18:00 98.3 F 109 H 36 H 122/85 91 11/05/24 17:42 74 32 H 11/05/24 16:00 105 H 35 H 123/82 93 11/05/24 15:49 98 11/05/24 15:46 102 H 28 H 11/05/24 15:35 97 32 H 93 11/05/24 15:00 96 39 H 132/84 92 11/05/24 14:00 96 37 H 147/88 95 11/05/24 14:00 87 11/05/24 13:50 79 23 H 11/05/24 13:00 97 37 H 125/83 95 11/05/24 12:00 87 35 H 132/87 95 11/05/24 11:28 99 11/05/24 11:27 88 32 H 11/05/24 11:05 88 32 H 93 11/05/24 11:00 98 27 H 91 11/05/24 10:55 22 H 11/05/24 10:00 98.9 F 78 25 H 158/95 98 11/05/24 10:00 98.9 F 93 33 H 125/83 96 11/05/24 09:00 105 H 25 H 148/94 95 Pulse Ox O2 Del Method O2 Flow Rate O2 Flow Rate FiO2 FiO2 FiO2 11/05/24 20:30 Heated High Flow 60 100 11/05/24 20:30 95 60 100 11/05/24 19:36 11/05/24 19:00 11/05/24 18:00 Heated High Flow, High Flow Nasal Ca nnula 11/05/24 17:42 94 45 65 11/05/24 16:00 11/05/24 15:49 11/05/24 15:46 93 45 70 60 11/05/24 15:35 Heated High Flow 45 70 11/05/24 15:00 11/05/24 14:00 11/05/24 14:00 11/05/24 13:50 96 45 75 70 11/05/24 13:00 11/05/24 12:00 11/05/24 11:28 11/05/24 11:27 93 45 75 11/05/24 11:05 Heated High Flow 45 75 11/05/24 11:00 11/05/24 10:55 11/05/24 10:00 11/05/24 10:00 Nasal Cannula, Hea juan f High Flow 11/05/24 09:00 Date exam was performed: 11/05/24 Time exam was performed: 21:24 Sepsis Screen No Definite Risk 10/30/24 19:24 10/30/24 Respiratory Rate 38 breaths/min H (12 - 18) 11/05/24 20:30 11/05/24 Blood Pressure 122/85 mmHg 11/05/24 19:00 11/05/24 [place] Coma Scale Score 15 11/05/24 19:32 11/05/24 Quick SOFA Score 1 11/05/24 20:57 11/05/24 SOFA Score: ABG PO2/FiO2 Ratio 87 11/05/24 04:47 11/05/24 [place] Coma Scale Score 15 11/05/24 19:32 11/05/24 Blood Pressure Mean 97 mmHg 11/05/24 19:00 11/05/24 Total Bilirubin 1.1 mg/dL (0.15-1.2) 11/05/24 03:20 11/05/24 Platelet Count 556 10^3/cmm (157-399) H 11/05/24 03:20 11/05/24 Creatinine 0.5 mg/dL (0.7-1.2) L 11/05/24 14:45 11/05/24 SOFA Score 4 11/05/24 20:57 11/05/24 Data 11/05/24 03:20 11/05/24 14:45 Micro: Microbiology 11/05/24 11:30 Gram Stain - Final Sputum - Expectorated Sputum 11/04/24 14:06 Gram Stain - Final Sputum - Expectorated Sputum Sputum Culture - Preliminary 10/30/24 17:24 Blood Culture - Final Blood NO GROWTH AFTER 5 DAYS 10/30/24 17:32 Blood Culture - Final Blood NO GROWTH AFTER 5 DAYS A&P Assessment and plan (1) ARDS (adult respiratory distress syndrome): Appreciate PF ratio between 100-150. Repeat ABG in AM (2) Severe sepsis: SIRS: Tachycardic, Febrile, Leukocytosis. Present on admission. Source: Pneumonia End organ damage: Respiratory failure Lactic acid elevated on admission. Monitor blood pressures. Keep mean artery pressure 65 mmHg. Follow-up blood culture, urine culture, negative MRSA swab, trend procalcitonin, negative bacterial antigen. Continue with IV meropenem for now. Will plan to finish a 7-day course. MRSA swab negative. C/w azithromycin for atypical coverage. (3) Acute hypoxic respiratory failure: Acute hypoxic respiratory failure secondary to pneumonia, influenza, and severe pneumonitis. 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 Oxygen supplementation keeping saturation over 88%. Wean accordingly. Currently on 45 L 90% being weaned down to 45L 60%. Pulmicort twice daily, ipratropium, Xopenex every 4 hour. Patient is in ARDS. Will plan to keep net negative. Repeat IV Lasix 40 mg one-time. C/w Diamox 500 mg oral daily. Monitor BMP in afternoon Fluid restriction to less than 1500 cc. Strict input output charting, daily weights. Monitor electrolytes. Out of bed to chair. Aggressive pulmonary toilet with I-S and chest vest. Repeat sputum culture. Repeat Cxr. Wean Solu-Medrol 40 mg Q12 hourly. Check ABG in AM. Continue with IV Ativan 0.5 every 4 hour as needed for air hunger. Morphine 1 mg every 4 hours as needed. Fungitell negative, Check histoplasma urine antigen, Coccidio and Blastomycosis. (4) Pneumonia: Concern for superadded bacterial infection over recent influenza. Treatment as above. (5) Hypertensive urgency: Goal blood pressure less than 140/90 mmHg. Depending on the blood pressures uptitrate accordingly. C/w amlodipine 5 mg oral daily. Getting Lasix as above. Will continue to monitor. (6) Thrombocytosis: Platelet level is significantly improved, Continue aspirin (7) Transaminitis: Suspect secondary to sepsis Negative hepatitis panel. Liver ultrasound appreciated. Plan DVT prophylaxis: Lovenox CODE STATUS: Full code Protonix OPD prophylaxis Regular diet. Out of bed to chair. Aggressive pulmonary toilet with incentive spirometry and flutter valve. Wean oxygen keeping saturations over 88%. Patient still requiring high oxygen supplementation to maintain saturations below 88%. Given requirement of high oxygen supplementation without much improvement discussed in detail with the patient for possible need of bronchoscopy in both 90 team going further for improvement. Both patient and patient's are agreeable. Discussed patient's care with temporary data entry clerk and orthopedic nurse practitioner at [facility] Dr. Ortiz who is excepted patient's care. PDMP PDMP Reviewed: Not Reviewed Attestations Medical Necessity Statement*: Requires further hospitalization for management of ARDS/acute hypoxic respiratory failure as patient is dependent on high FiO2 with heated high flow, sepsis Coding Level of Care Code Critical Care >/= 30 minutes Critical care time (in minutes): 80 The high probability of a clinically significant, sudden or life threatening deterioration, as referenced in this documentation, required my full and direct attention, intervention and personal management. The critical care time shown is in addition to time spent performing any reported separately billable procedures and includes the following: [x] Data and vital sign review and interpretation [x] Patient assessment, examination and intervention [x] Medication orders and management [x] Patient/Family updates as able [x] Care Coordination and Documentation. Other Coding Information This patient has a high probability of clinically significant, sudden or life threatening deterioration of the patient's (neurological/pulmonary/cardiac/renal/ID/endocrine) systems required my full, direct attention, the highest level of physician preparedness for urgent intervention and personal management. I managed/supervised life or organ supporting interventions that required frequent physician assessment. I devoted my full attention in the ICU to the direct care of this patient for the period of time indicated above. Time I spent with family or surrogate(s) is included only if the patient was incapable of providing necessary information or participating in decision making. This time includes the following services provided: Telemetry review Non-Mechanical Ventilation Hemodynamic interpretation, assessment and management Review and interpretation of CXR Review and interpretation of lab values Review and interpretation of microbiologic data and culture results Review of medications and administration Review and interpretation of Nutrition requirements and management Discussion of management with other consultants and services Clinical update to family members Diagnoses ARDS (adult respiratory distress syndrome) J80 Severe sepsis A41.9; R65.20 Acute hypoxic respiratory failure J96.01 Pneumonia J18.9 Hypertensive urgency I16.0 Thrombocytosis D75.839 Transaminitis R74.01
[2024-11-05] MEDS: enoxaparin 40 mg/0.4 mL Syringe SUBCUT (20:20)
[2024-11-05] MEDS: temazepam 15 mg Capsule PO (20:20)
[2024-11-05 20:30] LABS: Fungitell 1-3-B Glucan Assay <31 pg/ml; Interpretation Negative (Negative)
[2024-11-06] VITALS (19 sets, daily range): BP systolic 121–153; BP diastolic 78–99; PULSE 89–113; RESP 20–48; TEMP 36.4–37.3; O2SAT 87–98
[2024-11-06] MEDS: ipratropium 0.5 mg/2.5 mL Neb INHALATION ×3 (01:37→07:31)
[2024-11-06] MEDS: levalbuterol 0.63 mg/3 mL Neb INHALATION ×3 (01:37→07:30)
[2024-11-06 04:08] LABS: Basophils % 0.1 %; Lymphocytes # 1.6 10^3/uL (0.8-4.8); Lymphocytes % 5.6 %; Mean Corpuscular HGB Conc 31.8 g/dL (30-55); Mean Corpuscular Volume 91.3 fl (82-101); Mean Platelet Volume 9.1 fL (7.4-10.4); Monocytes # 2.2 10^3/uL (0.2-0.9); Monocytes % 7.9 %; Neutrophils # 20.49 10^3/uL (1.8-7.7); Neutrophils % 73.2 %; Nucleated Red Blood Cells # 0.1 /100WBC; Nucleated Red Blood Cells % 0.2 %; Platelet Count 602 10^3/cmm (157-399); Red Blood Count 4.27 10^6/uL (3.85-5.65); Red Cell Distribution Width 15.1 % (12.1-15.1); White Blood Count 28.02 10^3/uL (3.29-11.43)
[2024-11-06 04:33] LABS: Alanine Aminotransferase 472 U/L (0-41); Albumin Level 2.9 g/dL (3.5-5.2); Alkaline Phosphatase 293 U/L (40-130); Anion Gap 18.1 (5-19); Aspartate Amino Transferase 102 U/L (0-40); Blood Urea Nitrogen 22 mg/dL (6-20); Calcium 8.5 mg/dL (8.5-10.5); Carbon Dioxide 23 mmol/L (22-29); Chloride 102 mmol/L (98-107); Globulin 3.1 g/dL (1.3-4.6); Glomerular Filtration Rate 138.4 mL/min (90-130); Glucose 121 mg/dL (65-115); Osmolality Calculated 291 mOsm/kg (285-295); Potassium 5.1 mmol/L (3.5-5.1); Sodium 138 mmol/L (136-145); Total Bilirubin 1.1 mg/dL (0.15-1.2)
[2024-11-06 04:34] LABS: Magnesium 2.2 mg/dL (1.7-2.3)
[2024-11-06 04:47] LABS: Slide Review Slide Review Perform
[2024-11-06] MEDS: meropenem 1,000 mg SDV 1000 MG IVP (07:23)
[2024-11-06] MEDS: budesonide 0.5 mg/2 mL Neb INHALATION (07:30)
--- NOTE | 2024-11-06 08:59 | PM.TDS ---
Transfer Summary Providers Date of Admission: 10/30/24 18:04 Date of Discharge/Transfer: 11/06/24 Attending Provider at Admission: Minesh Hamm MD Attending Provider at Transfer: Syed Larkin MD Primary Care Provider: Bertin Jo Transfer Plans: Anticipated date of transfer: 11/06/24. Receiving Facility: [facility]. Receiving Provider: Dr. Ortiz. Diagnoses at Discharge Discharge Diagnosis (1) ARDS (adult respiratory distress syndrome): Status: Acute (2) Severe sepsis: Status: Acute (3) Acute hypoxic respiratory failure: Status: Acute (4) Pneumonia: Status: Acute (5) Hypertensive urgency: Status: Acute (6) Thrombocytosis: Status: Acute (7) Transaminitis: Status: Acute Reason for Visit Reason for Visit SOB Brief History: History as per HPI: Kiran Portillo is a 59 year old male with a past medical history significant for hypertension who presents to the emergency department with shortness of breath. Patient reports onset 3 weeks ago. He states he was diagnosed with influenza A infection. He states for the first week he was sick but was improving by the end of the first week. He states after about a week he got significantly worse. He describes symptoms of shortness of breath, cough, dyspnea, fatigue, malaise, and persistent fevers. Has been seen multiple times first in [facility] and then multiple times at the [facility]. He has been treated with azithromycin, doxycycline and Levaquin. He is also on prednisone. Exertion worsens symptoms. Rest improves. Denies other alleviating or aggravating factors. Denies GI complaints. Upon his presentation to the emergency department, patient was found to be hypoxic on room air. He was placed on oxygen and eventually required a nonrebreather to bring him to normal SpO2 saturations. He denies prior home oxygen needs. Denies known underlying lung disease. He notes significant pneumonia back in 2021 following a COVID-19 infection. Reports a remote history of cigarette use. Reports some transient use of a vape as well. He was found to be significantly tachycardic, tachypneic, and hypertensive. Labs were significant for ABG confirming hypoxia with PaO2 of 56.6 mmHg, leukocytosis, and transaminitis. Chest x-ray shows significant bilateral pneumonia. CT PE is pending at time of evaluation. Hospital Course Hospital Course Patient was admitted to the hospital further evaluation and management of severe sepsis with acute hypoxic respiratory failure with concerns for bilateral superimposed bacterial pneumonia. He was started on broad-spectrum IV antibiotics. During hospitalization patient continued to have worsening respiratory failure developing ARDS with PF ratio dropping down to 80-100 with patient requiring heated high flow with 60 L 100% FiO2. Given persistent and worsening ARDS on maximum treatment patient going forward possibly needs a medical insurance clerk and a bronchoscopy for further evaluation and management. Possible transfer to a tertiary center where both of them are available for discussion today with patient and patient's family they were agreeable. Patient's care was accepted by Dr. Ortiz at [facility]. Prior to discharge patient had decompensation in his breathing status with saturation of around 90 on 60 L 100% FiO2 with breathing rate of around 35. ABG was repeated which showed worsening PF ratio down to 45. Decision was made to intubate patient for further management. Given worsening respiratory status he has been given an extra dose of Solu-Medrol 125 mg, started on full dose Lovenox while D-dimer is elevated. Physical Exam Narrative: General: No acute distress, AO x3, tachypneic, critically sick appearing, tired appearing HEENT: PERRLA, pupils bilaterally equal and reactive Chest: Bilateral bronchial breath sounds all over lung clark with coarse crackles mostly in right upper middle lobe and left lower zone Cardiac: S1-S2 regular, tachycardia, soft pansystolic murmur at apex. Abdomen: Soft, nontender, no organomegaly, bowel sounds present Neuro: No focal deficits, no facial deformity, AO x3, power 5/5 in all limbs Urinary Catheter Management: Jackson: Cath Placed During This Visit: yes Reason for Continuing Indwelling Catheter: Not indwelling catheter Urinary Catheter Date of Insertion: 11/01/24 Urinary Catheter Time of Insertion: 07:56 TS Data Studies Completed and Pending Pending at discharge Category Date Time Status CTA chest [CT angio chest PE protcl [id number]] Routine Cat Scan 11/06/24 08:25 Ordered ABG FULL [Arterial Blood Gas Full] AM LABS Lab 11/05/24 04:47 Results Blastomyces AB Panel CF and ID Routine Lab 11/05/24 03:20 Received Coccidioides AB CF Serum Routine Lab 11/05/24 03:20 Received Complete Blood Count w/Auto AM LABS Lab 11/07/24 04:00 Ordered Comprehensive Metabolic Panel AM LABS Lab 11/07/24 04:00 Ordered Histoplasma Quantitative AG Routine Lab 11/04/24 08:38 Ordered MAG [Magnesium] AM LABS Lab 11/07/24 04:00 Ordered Sputum Culture and Gram Stain Routine Lab 11/04/24 14:06 Results Sputum Culture and Gram Stain Stat Lab 11/05/24 11:30 Results Completed Studies During Hospitalization Category Date Time Status CT angio chest PE protcl [id number] Stat Cat Scan 10/30/24 17:51 Completed XR chest 1V portable [id number] Routine Exams 11/02/24 04:00 Completed XR chest 1V portable [id number] Routine Exams 11/05/24 08:50 Completed XR chest 1V portable [id number] Stat Exams 10/30/24 17:11 Completed XR chest 1V portable [id number] Urgent Exams 11/01/24 04:27 Completed CV. echo complete* [id number] Routine Ultrasound 10/31/24 10:20 [place] liver [id number] Routine Ultrasound 11/04/24 17:50 Completed Laboratory Last Values WBC 28.02 10^3/uL (3.29-11.43) H 11/06/24 03:27 RBC 4.27 10^6/uL (3.85-5.65) 11/06/24 03:27 Hgb 12.40 g/dL (11.27-16.99) 11/06/24 03:27 Hct 39.0 % (37-53) 11/06/24 03:27 MCV 91.3 fl (82-101) 11/06/24 03:27 MCH 29.0 pg (27-33) 11/06/24 03:27 MCHC 31.8 g/dL (30-55) 11/06/24 03:27 RDW 15.1 % (12.1-15.1) 11/06/24 03:27 Plt Count 602 10^3/cmm (157-399) H 11/06/24 03:27 MPV 9.1 fL (7.4-10.4) 11/06/24 03:27 Neut % (Auto) 73.2 % 11/06/24 03:27 Lymph % (Auto) 5.6 % 11/06/24 03:27 [place] % (Auto) 7.9 % 11/06/24 03:27 Eos % (Auto) 0.0 % 11/06/24 03:27 Baso % (Auto) 0.1 % 11/06/24 03:27 Neut # (Auto) 20.49 10^3/uL (1.8-7.7) H 11/06/24 03:27 Lymph # (Auto) 1.6 10^3/uL (0.8-4.8) 11/06/24 03:27 [place] # (Auto) 2.2 10^3/uL (0.2-0.9) H 11/06/24 03:27 Eos # (Auto) 0.0 10^3/uL (0.0-0.8) 11/06/24 03: Baso # (Auto) 0.0 10^3/uL (0.0-0.1) 11/06/24 03:27 Nucleated RBC % (auto) 0.2 % 11/06/24 03:27 Total Counted 100 (0-100) 11/05/24 03:20 Atypical Lymphs % Not Reportable 11/05/24 03:20 Absolute Neutrophils 17.5 10^3/cmm (1.4-6.5) H 11/05/24 03:20 Segmented Neutrophils 84 % 11/05/24 03:20 Band Neutrophils 2.0 % 11/05/24 03:20 Lymphocytes (Manual) 4 % 11/05/24 03:20 Monocytes (Manual) 3.0 % 11/05/24 03:20 Absolute Monocytes 0.6 10^3/cmm (0.1-0.6) 11/05/24 03:20 Eosinophils (Manual) 0 % 11/05/24 03:20 Absolute Eosinophils 0.0 10^3/cmm (0.0-0.7) 11/05/24 03:20 Basophils (Manual) 0.0 % 11/05/24 03:20 Absolute Basophils 0.0 10^3/cmm (0.0-0.2) 11/05/24 03:20 Metamyelocytes 4.0 % 11/05/24 03:20 Myelocytes 3.0 % 11/05/24 03:20 Nucleated RBCs # 0.1 /100WBC 11/06/24 03:27 Smudge Cells Trace 11/05/24 03:20 Platelet Estimate Increased (Normal) 11/05/24 03:20 Specimen Type Arterial 11/05/24 04:47 Sample Site Radial, right 11/05/24 04:47 ABG pH 7.38 (7.35-7.45) 11/05/24 04:47 ABG pCO2 41.5 mmHg (35-45) 11/05/24 04:47 ABG pO2 61.8 mmHg (80.0-100.0) L 11/05/24 04:47 ABG PO2/FiO2 Ratio 87 11/05/24 04:47 ABG HCO3 24.6 mmol/L (22-26) 11/05/24 04:47 ABG O2 Saturation 91.6 11/05/24 04:47 ABG Base Excess -0.6 mmol/L (-2.0-2.0) 11/05/24 04:47 Speedy Test Pos 11/05/24 04:47 A-a O2 Gradient 50.3 mmHg (5-10) H 11/05/24 04:47 Hematocrit 35.3 % (42-52) L 11/05/24 04:47 Hgb O2 Saturation 89.6 % (95-100) L 11/05/24 04:47 Carboxyhemoglobin 0.9 %THgb (0.4-20.1) 11/05/24 04:47 Methemoglobin 1.3 % (0.4-1.5) 11/05/24 04:47 Total Hemoglobin 11.5 g/dL (14-18) L 11/05/24 04:47 Sodium 137.0 mmol/L (131-143) 11/05/24 04:47 Potassium 4.3 mmol/L (3.5-5.0) 11/05/24 04:47 Glucose 148.0 mg/dL (70-115) H 11/05/24 04:47 Ionized Calcium 1.2 mmol/L (1.1-1.4) 11/05/24 04:47 O2 Delivery Device Bipap 11/01/24 03:15 O2 Liters/Min 45.0 % 11/05/24 04:47 FiO2 71.0 % 11/05/24 04:47 Materials Development Engineer ID Ed 11/05/24 04:47 Sodium 138 mmol/L (136-145) 11/06/24 03:27 Potassium 5.1 mmol/L (3.5-5.1) 11/06/24 03:27 Chloride 102 mmol/L (98-107) 11/06/24 03:27 Carbon Dioxide 23 mmol/L (22-29) 11/06/24 03:27 Anion Gap 18.1 (5-19) 11/06/24 03:27 BUN 22 mg/dL (6-20) H 11/06/24 03:27 Creatinine 0.6 mg/dL (0.7-1.2) L 11/06/24 03:27 GFR Calculation 138.4 mL/min (90-130) H 11/06/24 03:27 Glucose 121 mg/dL (65-115) H 11/06/24 03:27 Estimat Average Glucose 105 11/04/24 04:47 Hemoglobin A1c 5.3 % (4.0-6.0) 11/04/24 04:47 Calculated Osmolality 291 mOsm/kg (285-295) 11/06/24 03:27 Lactic Acid 2.3 mmol/L (0.5-2.2) H 10/30/24 17:24 Lactic Acid (Sepsis) 2.1 mmol/L (0.5-2.2) 10/30/24 20:48 Calcium 8.5 mg/dL (8.5-10.5) 11/06/24 03:27 Phosphorus 3.5 mg/dL (2.5-4.5) 11/04/24 04:47 Magnesium 2.2 mg/dL (1.7-2.3) 11/06/24 03:27 Iron 43 ug/dL (59-158) L 11/04/24 04:47 TIBC 130 mcg/dl 11/04/24 04:47 % Saturation 33.0 % (20-50) 11/04/24 04:47 Unsat Iron Binding 87 ug/dL (112-347) L 11/04/24 04:47 Total Bilirubin 1.1 mg/dL (0.15-1.2) 11/06/24 03:27 AST 102 U/L (0-40) H 11/06/24 03:27 ALT 472 U/L (0-41) H 11/06/24 03:27 Alkaline Phosphatase 293 U/L (40-130) H 11/06/24 03:27 Lactate Dehydrogenase 530 U/L (135-225) H 11/04/24 04:47 Troponin T 5th Gen ng/L 29 ng/L (0-15) H 10/31/24 10:35 C-Reactive Protein 59.0 mg/L (0.0-4.9) H 11/04/24 04:47 NT-Pro-B Natriuret Pep 409 pg/mL (0-125) H 10/31/24 03:18 Total Protein 6.0 g/dL (6.6-8.7) L 11/06/24 03:27 Albumin 2.9 g/dL (3.5-5.2) L 11/06/24 03:27 Globulin 3.1 g/dL (1.3-4.6) 11/06/24 03:27 Triglycerides 122 mg/dL (0-150) 11/05/24 03:20 Cholesterol 201 mg/dL (0-200) H 11/05/24 03:20 LDL Cholesterol, Calc 131 mg/dL (50-129) H 11/05/24 03:20 Total VLDL Cholesterol 24 mg/dL (0-30) 11/05/24 03:20 HDL Cholesterol 46 mg/dL (60-100) L 11/05/24 03:20 Cholesterol/HDL Ratio 4.37 mg/dL (1.0-5.00) 11/05/24 03:20 Vitamin B12 851 pg/mL (232-1245) 11/04/24 04:47 Folate 2.9 ng/mL (4.5-32.2) L 11/05/24 03:20 Procalcitonin 0.61 ng/mL (0-0.5) H 11/04/24 04:47 TSH 0.43 uIU/mL (0.27-4.20) 11/04/24 04:47 Nasal MRSA (PCR) Not detected (Negative) 10/30/24 21:40 Hepatitis A IgM Ab Non-reactive (Nonreactive) 11/05/24 03:20 Hep Bs Antigen Non-reactive (Nonreactive) 11/05/24 03:20 Hep Bs Antibody < 3.5 (11.5-1000) L 11/05/24 03:20 Hep B Core Total Ab Non-reactive (Nonreactive) 11/05/24 03:20 Hepatitis C Antibody Non-reactive (Nonreactive) 11/05/24 03:20 Influenza A (PCR) Negative (Negative) 10/30/24 17:40 Influenza Type B (PCR) Negative (Negative) 10/30/24 17:40 RSV (PCR) Negative (Negative) 10/30/24 17:40 SARS-CoV-2 (PCR) Negative (Negative) 10/30/24 17:40 Beta-(1,3)-D-Glucan <31 pg/ml 11/01/24 03:58 B-(1,3)-D-Glucan Intrp Negative (Negative) 11/01/24 03:58 Radiology Impressions Chest CTA 10/30/24 17:51 IMPRESSION: 1. Negative for pulmonary embolus. 2. Extensive bilateral consolidative opacities, which may represent extensive pulmonary edema, hemorrhage or acute interstitial pneumonitis. Liver Ultrasound 11/04/24 17:50 IMPRESSION: Normal right upper quadrant ultrasound. Chest X-Ray 11/05/24 08:50 IMPRESSION: Decreased lung volumes with mild improvement of diffuse interstitial/ground-glass infiltrates, nonspecific as discussed above. Microbiology 11/05/24 11:30 Sputum - Expectorated Sputum Gram Stain - Final 11/04/24 14:06 Sputum - Expectorated Sputum Gram Stain - Final 11/04/24 14:06 Sputum - Expectorated Sputum Sputum Culture - Preliminary 10/30/24 17:24 Blood Blood Culture - Final NO GROWTH AFTER 5 DAYS 10/30/24 17:32 Blood Blood Culture - Final NO GROWTH AFTER 5 DAYS 10/30/24 21:43 Sputum - Expectorated Sputum Gram Stain - Final 10/30/24 21:43 Sputum - Expectorated Sputum Sputum Culture - Final 10/31/24 02:10 Urine,Voided Bacterial Antigens - Final Recent Clincial Data Last Vital Signs Temp 99.2 F 11/06/24 08:00 Pulse 96 11/06/24 08:00 Resp 24 H 11/06/24 08:00 BP 135/84 11/06/24 08:00 Pulse Ox 97 11/06/24 08:00 O2 Del Method Heated High Flow 11/06/24 08:00 O2 Flow Rate 60 11/06/24 07:35 FiO2 100 11/06/24 08:00 Vital Signs Temp Pulse Pulse Resp Resp BP Pulse Ox 11/06/24 08:00 99.2 F 96 24 H 135/84 97 11/06/24 07:36 97 11/06/24 07:35 95 34 H 11/06/24 07:15 100 34 H 97 11/06/24 07:00 103 H 31 H 140/92 88 L 11/06/24 06:00 102 H 20 H 153/79 90 11/06/24 05:52 91 11/06/24 05:31 97.6 F 11/06/24 05:00 89 23 H 92 11/06/24 04:45 92 26 H 94 11/06/24 04:45 92 32 H 11/06/24 04:00 91 21 H 96 11/06/24 03:00 91 23 H 95 11/06/24 02:00 113 H 48 H 87 L 11/06/24 01:30 90 24 H 96 11/06/24 01:30 90 26 H 11/06/24 01:00 90 25 H 142/94 95 11/06/24 00:00 91 42 H 121/78 98 11/05/24 23:00 96 32 H 135/86 97 11/05/24 22:00 106 H 11/05/24 22:00 98 33 H 142/89 96 11/05/24 21:00 109 H 35 H 128/88 95 Pulse Ox O2 Del Method O2 Flow Rate O2 Flow Rate FiO2 FiO2 11/06/24 08:00 Heated High Flow 100 11/06/24 07:36 11/06/24 07:35 93 60 100 11/06/24 07:15 Heated High Flow 60 100 11/06/24 07:00 11/06/24 06:00 11/06/24 05:52 11/06/24 05:31 11/06/24 05:00 11/06/24 04:45 Heated High Flow 60 70 11/06/24 04:45 94 60 70 11/06/24 04:00 11/06/24 03:00 11/06/24 02:00 11/06/24 01:30 High Flow Nasal Cannula 60 199 11/06/24 01:30 96 60 100 11/06/24 01:00 11/06/24 00:00 11/05/24 23:00 11/05/24 22:00 11/05/24 22:00 11/05/24 21:00 Intake & Output/Weight 11/04/24 11/05/24 11/06/24 11/07/24 06:59 06:59 06:59 06:59 Intake Total 2119 770 / 770 200 / 200 Output Total 2775 / 2775 3300 / 3300 Balance 2119 -2004 / -3099 / -3099 Weight 87.232 kg 85.139 kg 83.325 kg Vitals Last Vital Signs Temp 99.2 F 11/06/24 08:00 Pulse 96 11/06/24 08:00 Resp 24 H 11/06/24 08:00 BP 135/84 11/06/24 08:00 Pulse Ox 97 11/06/24 08:00 O2 Del Method Heated High Flow 11/06/24 08:00 O2 Flow Rate 60 11/06/24 07:35 FiO2 100 11/06/24 08:00 TS Medications Medications Acetaminophen (Acetaminophen 325 Mg Tablet) 650 mg PO Q6H PRN PRN Reason: Mild/Mod Pain Or Temp >/= 101 Last Admin: 11/01/24 06:19 Dose: 650 mg Albuterol Sulfate (Albuterol 2.5 Mg/3 Ml Neb) 2.5 mg INHALATION Q4H PRN PRN Reason: sob Amlodipine Besylate (Amlodipine 5 Mg Tablet) 5 mg PO DAILY [facility] Last Admin: 11/05/24 07:56 Dose: 5 mg Aspirin (Aspirin 81 Mg Ec Tablet) 81 mg PO DAILY [facility] Last Admin: 11/05/24 07:58 Dose: 81 mg Azithromycin (Azithromycin 250 Mg Tablet) 500 mg PO DAILY [facility]; Protocol Stop: 11/09/24 08:59 Last Admin: 11/05/24 07:57 Dose: 500 mg Benzonatate (Benzonatate 100 Mg Capsule) 200 mg PO TID PRN PRN Reason: COUGH Last Admin: 11/03/24 11:11 Dose: 200 mg Budesonide (Budesonide 0.5 Mg/2 Ml Neb) 0.5 mg INHALATION BID.RESPIRATORY [facility] Last Admin: 11/06/24 07:30 Dose: 0.5 mg Calcium Carbonate (Calcium Carbonate 500 Mg Chew Tablet) 1,000 mg PO Q4H PRN PRN Reason: DYSPEPSI Enoxaparin Sodium (Enoxaparin 40 Mg/0.4 Ml Syringe) 40 mg SUBCUT Q24H [facility] Last Admin: 11/05/24 20:20 Dose: 40 mg Guaifenesin (Guaifenesin 600 Mg Tablet) 1,200 mg PO BID [facility] Last Admin: 11/05/24 18:10 Dose: 1,200 mg Hydralazine HCl (Hydralazine 20 Mg/Ml Inj 1 Ml) 10 mg IVP Q4H PRN PRN Reason: SBP>180mmHg or DBP>110mmHG Ipratropium [place] (Ipratropium 0.5 Mg/2.5 Ml Neb) 0.5 mg INHALATION Q4H.RESPIRATORY [facility] Last Admin: 11/06/24 07:31 Dose: 0.5 mg Levalbuterol HCl (Levalbuterol 0.63 Mg/3 Ml Neb) 0.63 mg INHALATION Q4H.RESPIRATORY [place] Last Admin: 11/06/24 07:30 Dose: 0.63 mg Lorazepam (Lorazepam 2 Mg/Ml Inj 1 Ml) 0.5 mg IVP Q4H PRN PRN Reason: ANXIETY Last Admin: 11/05/24 17:40 Dose: 0.5 mg Meropenem (Meropenem 1,000 Mg Sdv) 1,000 mg IVP Q8H [facility]; Protocol Stop: 11/08/24 07:14 Last Admin: 11/06/24 07:23 Dose: 1,000 mg Methylprednisolone Sodium Succinate (Methylprednisolone Sod Succ 40 Mg/Ml Inj) 40 mg IVP Q12H [facility] Last Admin: 11/05/24 20:20 Dose: 40 mg Morphine Sulfate (Morphine 4 Mg/Ml Sdv 1 Ml) 1 mg IVP Q4H PRN PRN Reason: Air hunger Last Admin: 11/05/24 10:55 Dose: 1 mg Ondansetron HCl (Ondansetron 2 Mg/Ml Sdv 2 Ml) 4 mg IVP Q6H PRN PRN Reason: NAUSEA AND VOMITING Last Admin: 10/31/24 08:03 Dose: 4 mg Temazepam (Temazepam 15 Mg Capsule) 15 mg PO BEDTIME PRN PRN Reason: INSOMNIA Last Admin: 11/05/24 20:20 Dose: 15 mg Discontinued Medications Acetazolamide (Acetazolamide 250 Mg Tablet) 500 mg PO DAILY [facility] Last Admin: 11/05/24 07:55 Dose: 500 mg Albuterol Sulfate (Albuterol 2.5 Mg/3 Ml Neb) 2.5 mg INHALATION Q4H PRN PRN Reason: ALLERGIES Last Admin: 10/31/24 06:16 Dose: 2.5 mg Albuterol Sulfate (Albuterol 2.5 Mg/3 Ml Neb) 2.5 mg INHALATION Q4H [facility] Last Admin: 11/04/24 07:31 Dose: 2.5 mg Cefepime HCl (Cefepime 2,000 Mg Sdv) 2,000 mg IVP Q8H [facility]; Protocol Last Admin: 11/01/24 01:25 Dose: 2,000 mg Chlorhexidine Gluconate (Chlorhexidine Gluconate 4% Btl 118 Ml) 1 applic TOPICAL 0100 [facility] Etomidate (Etomidate 2 Mg/Ml Inj Sdv 10 Ml) 20 mg IVP NOW ONE Stop: 11/01/24 06:44 Last Admin: 11/01/24 20:43 Dose: Not Given Furosemide (Furosemide 10 Mg/Ml Sdv 10ml) 60 mg IVP ONCE ONE Stop: 11/04/24 08:40 Last Admin: 11/04/24 09:12 Dose: 60 mg Furosemide (Furosemide 10 Mg/Ml Sdv 4ml) 40 mg IVP ONCE ONE Stop: 11/05/24 08:50 Last Admin: 11/05/24 10:07 Dose: 40 mg Linezolid (Zyvox Premix) 600 mg in 300 mls @ 300 mls/hr IV ONCE ONE; Protocol Stop: 10/30/24 18:50 Last Infusion: 10/30/24 20:59 Dose: Infused Sodium Chloride (Sodium Chloride 0.9%) 1,000 mls @ 200 mls/hr IV .Q5H ONE Stop: 10/30/24 23:26 Last Infusion: 10/31/24 00:41 Dose: Infused Linezolid (Zyvox Premix) 600 mg in 300 mls @ 300 mls/hr IV Q12H [facility]; Protocol Last Infusion: 11/04/24 08:25 Dose: Infused Magnesium Sulfate (Magnesium Sulfate Premix) 2 gm in 50 mls @ 50 mls/hr IV ONCE ONE Stop: 10/31/24 08:42 Last Infusion: 10/31/24 09:00 Dose: Infused Dextrose/Sodium Chloride (Dextrose 5%-Sod Chloride 0.9%) 1,000 mls @ 125 mls/hr IV .Q8H [facility] Stop: 10/31/24 15:59 Last Infusion: 10/31/24 19:54 Dose: Infused Propofol (Diprivan) 1,000 mg in 100 mls @ 0 mls/hr IV .Q0M [facility]; Protocol Propofol (Diprivan) Confirm Administered Dose 1,000 mg in 100 mls @ as directed .ROUTE .STK-MED ONE Stop: 11/01/24 06:45 Last Admin: 11/01/24 07:39 Dose: Not Given Dexmedetomidine/Sodium Chloride (Precedex) 400 mcg in 100 mls @ 0 mls/hr IV .Q0M [facility]; Protocol Last Titration: 11/03/24 06:55 Dose: 0 mcg/kg/hr, 0 mls/hr Iohexol (Iohexol 350 Mg/Ml 500 Ml Btl (Per Ml)) 0 ml IV ONCE ONE Stop: 10/30/24 18:42 Last Admin: 10/30/24 18:41 Dose: 95 ml Ipratropium [place] (Ipratropium 0.5 Mg/2.5 Ml Neb) 0.5 mg INHALATION Q6H.RESP [facility] Last Admin: 11/05/24 08:11 Dose: 0.5 mg Levalbuterol HCl (Levalbuterol 0.63 Mg/3 Ml Neb) 0.63 mg INHALATION Q6H.RESP [facility] Last Admin: 11/05/24 08:11 Dose: 0.63 mg Methylprednisolone Sodium Succinate (Methylprednisolone Sod Succ 40 Mg Sdv) 40 mg IVP DAILY [facility] Last Admin: 10/31/24 08:03 Dose: 40 mg Methylprednisolone Sodium Succinate (Methylprednisolone Sod Succ 40 Mg/Ml Inj) 40 mg IVP DAILY [facility] Last Admin: 11/01/24 09:04 Dose: 40 mg Methylprednisolone Sodium Succinate (Methylprednisolone Sod Succ 40 Mg/Ml Inj) 40 mg IVP Q8H [facility] Last Admin: 11/05/24 04:09 Dose: 40 mg Morphine Sulfate (Morphine 4 Mg/Ml Sdv 1 Ml) 2 mg IVP Q1H PRN PRN Reason: Air hunger Last Admin: 11/04/24 08:18 Dose: 2 mg Vecuronium [place] (Vecuronium 10 Mg Sdv) 10 mg IVP ONCE ONE Stop: 11/01/24 06:45 Last Admin: 11/01/24 20:43 Dose: Not Given Allergies No Known Allergies Allergy (Verified 10/30/24 17:08) Home Medications albuterol sulfate 90 mcg/actuation aerosol inhaler 2 puff inhalation Q4H PRN Shortness Of Breath 10/22/24 [History Confirmed 10/31/24] benzonatate 100 mg capsule 100 mg PO TID PRN Cough 10/22/24 [History Confirmed 10/31/24] prednisone 20 mg tablet See Rx Instructions .Route .COMPLEX #14 tabs 10/22/24 [Rx Confirmed 10/31/24] Nebulizer machine and supplies #1 ea 10/28/24 [Rx Confirmed 10/31/24] budesonide 0.5 mg/2 mL suspension for nebulization 0.5 mg (2 mL) inhalation BID #60 mL 10/28/24 [Rx Confirmed 10/31/24] ipratropium 0.5 mg-albuterol 3 mg (2.5 mg base)/3 mL nebulization soln 3 ml inhalation 6XD PRN shortness of breath or wheezing #90 mL 10/28/24 [Rx Confirmed 10/31/24] acetaminophen 500 mg tablet 500 mg PO Q6H PRN pain or temp 10/31/24 [History Confirmed 10/31/24] ibuprofen 200 mg tablet 600 mg PO Q6H PRN Pain 10/31/24 [History Confirmed 10/31/24] Discharge Plan Discharge Patient Disposition: Home Condition: Stable Prescriptions: No Action prednisone 20 mg tablet See Rx Instructions .Route .COMPLEX Qty: 14 0RF Rx Instructions: 2 tabs PO daily for 4 days, then 1 tab PO daily X 4 days, then 0.5 tab daily for 4 days, then stop; albuterol sulfate 90 mcg/actuation HFA aerosol inhaler 2 puff inhalation Q4H PRN (Reason: Shortness Of Breath) benzonatate 100 mg capsule 100 mg PO TID PRN (Reason: Cough) budesonide 0.5 mg/2 mL suspension for nebulization 0.5 mg inhalation BID Qty: 60 0RF ipratropium-albuterol 0.5 mg-3 mg(2.5 mg base)/3 mL solution for nebulization 3 ml inhalation 6XD PRN (Reason: shortness of breath or wheezing) Qty: 90 0RF (DME) Nebulizer machine and supplies See Rx Instructions .ROUTE .MEDSUPPLY Qty: 1 11RF Rx Instructions: As directed acetaminophen 500 mg Tablet 500 mg PO Q6H PRN (Reason: pain or temp) ibuprofen 200 mg Tablet 600 mg PO Q6H PRN (Reason: Pain) Referrals: Bertin Jo NP [Primary Care Provider] - Patient Instructions: Opioid Safety Transfer Attestations Time Spent in Transfer Care: critical care time Critical Care Time (min): 80 Specific Discharge Activities: educating patient, educating and/or supporting family/caregiver, discussing with pcp/other providers, discussing with assistant case manager/social workers/dc planners, documenting/other paperwork and evaluating patient/reviewing data Status at Transfer: Cognitive status at transfer: cognitively intact; Behavioral status at transfer: cooperative; Functional status at transfer: uses cane/walker; Overall status at transfer: patient is not back to baseline Quality Metrics Clinical Quality Measures [ No reported AMI, CVA or VTE this stay] Coding Level of Care Code Critical Care >/= 30 minutes Critical care time (in minutes): 80 The high probability of a clinically significant, sudden or life threatening deterioration, as referenced in this documentation, required my full and direct attention, intervention and personal management. The critical care time shown is in addition to time spent performing any reported separately billable procedures and includes the following: [x] Data and vital sign review and interpretation [x] Patient assessment, examination and intervention [x] Medication orders and management [x] Patient/Family updates as able [x] Care Coordination and Documentation. Other Coding Information This patient has a high probability of clinically significant, sudden or life threatening deterioration of the patient's (neurological/pulmonary/cardiac/renal/ID/endocrine) systems required my full, direct attention, the highest level of physician preparedness for urgent intervention and personal management. I managed/supervised life or organ supporting interventions that required frequent physician assessment. I devoted my full attention in the ICU to the direct care of this patient for the period of time indicated above. Time I spent with family or surrogate(s) is included only if the patient was incapable of providing necessary information or participating in decision making. This time includes the following services provided: Telemetry review Mechanical Ventilation Hemodynamic interpretation, assessment and management Review and interpretation of CXR Review and interpretation of lab values Review and interpretation of microbiologic data and culture results Review of medications and administration Review and interpretation of Nutrition requirements and management Discussion of management with other consultants and services Clinical update to family members Diagnoses ARDS (adult respiratory distress syndrome) J80 Severe sepsis A41.9; R65.20 Acute hypoxic respiratory failure J96.01 Pneumonia J18.9 Hypertensive urgency I16.0 Thrombocytosis D75.839 Transaminitis R74.01
[2024-11-06] MEDS: LORazepam 2 mg/mL INJ 1 mL 0.5 MG IVP (09:27)
[2024-11-06] MEDS: methylPREDNISolone sod succ 40 mg/mL INJ IVP ×2 (09:27)
[2024-11-06] MEDS: morphine 4 mg/mL SDV 1 mL 1 MG IVP (09:27)
[2024-11-06] MEDS: dexmedeTOMIDine 0.9 % NaCL 400 MCG/100 ML PREMIX IV (09:38)
--- NOTE | 2024-11-06 09:41 | PC.NURSE ---
Dr. Larkin and RT to bedside with patient and . Discussed plan of care and possible need for intubation prior to transport to [place]. 1mg morphine, 0.5mg ativan, and precedex started at 0.2 as ordered.
[2024-11-06] MEDS: guaiFENesin 600 mg Tablet 1200 MG PO (10:03)
[2024-11-06] MEDS: azithromycin 250 mg Tablet 500 MG PO (10:03)
[2024-11-06 10:23] LABS: ABG PH Result 7.45 (7.35-7.45); Alveolar-Arterial Oxygen Gradi 79.5 mmHg (5-10); Arterial Blood Gas Hematocrit 37.8 % (42-52); Base Excess ABG 1.5 mmol/L (-2.0-2.0); Blood Gas Allen Test Pos; Blood Gas Operator Identificat GD; Blood Gas Sample Site Radial, right; Blood Gas Sample Type Arterial; HCO3 ABG 25.2 mmol/L (22-26); HGB O2 Sat 81.9 % (95-100); Ionized Calcium Level - ABG 1.2 mmol/L (1.1-1.4); Oxygen Device NC; Oxygen Saturation ABG 83.5; PO2 ABG 45.3 mmHg (80.0-100.0); PO2 FiO2 Ratio Arterial Blood 45; Potassium Level - ABG 3.7 mmol/L (3.5-5.0); Total Hemoglobin 12.3 g/dL (14-18)
[2024-11-06] MEDS: propofol 1,000 MG/100 ML INJ 5 MG IV (10:40)
[2024-11-06] MEDS: etomidate 2 mg/mL INJ SDV 10 mL 20 MG IVP (10:40)
[2024-11-06] MEDS: succinylcholine 20 mg/mL SDV 10mL 100 MG IVP (10:41)
[2024-11-06] MEDS: fentaNYL 1,000 MCG/100 ML BAG 2.5 MCG IV (10:41)
--- NOTE | 2024-11-06 10:44 | XR_ITS ---
WS: [id number] XR chest 1V portable [id number] REASON FOR EXAM: ETT FINDINGS: Patient has been intubated with the tip of the ET tube just above the cayden. A nasogastric tube has been placed the tip is in a position consistent with the fundus of the stomach. The examination of 11/05/2024 demonstrated some improvement compared to the earlier examinations, however the current examination demonstrates a more diffuse involvement as was noted on the examinations prior to 11/05/2024. XR/XR chest 1V portable [id number] IMPRESSION: Gastric and ET tube placements as above. Progression of the lung opacities as above. Findings are compatible with ARDS.
[2024-11-06] MEDS: methylPREDNISolone sod succ 125 mg/2 mL INJ IVP (10:46)
[2024-11-06] MEDS: enoxaparin 80 mg/0.8 mL Syringe SUBCUT (10:46)
--- NOTE | 2024-11-06 10:57 | W.ED.SOB ---
HPI - SOB/Dyspnea General: Chief Complaint: Shortness of Breath/Dyspnea Stated Complaint: SOB Time Seen by Provider: 10/30/24 17:09 History of Present Illness: HPI Narrative: This is a 59-year-old man with post flu respiratory failure. I was called to the ICU by Dr. Larkin for intubation prior to the patient's transfer to ICU in [place]. His oxygen saturations were borderline on maximal oxygen therapy. On my arrival patient is alert. is there. They consent to procedure. Related Data Home Medications ?Medication ?Instructions ?Recorded ?Confirmed albuterol sulfate 90 mcg/actuation 2 puff inhalation Q4H PRN 10/22/24 10/31/24 aerosol inhaler Shortness Of Breath benzonatate 100 mg capsule 100 mg PO TID PRN Cough 10/22/24 10/31/24 acetaminophen 500 mg tablet 500 mg PO Q6H PRN pain or temp 10/31/24 10/31/24 ibuprofen 200 mg tablet 600 mg PO Q6H PRN Pain 10/31/24 10/31/24 Previous Rx's ?Medication ?Instructions ?Recorded prednisone 20 mg tablet See Rx Instructions .Route 10/22/24 .COMPLEX #14 tabs Nebulizer machine and supplies #1 ea 10/28/24 budesonide 0.5 mg/2 mL suspension 0.5 mg (2 mL) inhalation BID #60 mL 10/28/24 for nebulization ipratropium 0.5 mg-albuterol 3 mg 3 ml inhalation 6XD PRN shortness 10/28/24 (2.5 mg base)/3 mL nebulization of breath or wheezing #90 mL soln Allergies Allergy/AdvReac Type Severity Reaction Status Date / Time No Known Allergies Allergy Verified 10/30/24 17:08 [facility] ED PFS: Medical History Essential (primary) hypertension Surgical History History of hand surgery History of shoulder surgery left Family History Other Cancer Denies family history of Diabetes Hypertension Stroke Social History Smoking and tobacco/nicotine status: former use of tobacco/nicotine Second hand smoke exposure: No Alcohol intake: never Substance/Drug Use: never Adopted: No Caregiver/support person: No Lives independently: Yes Household members: spouse Housing: House Marital status: Number of children: 2 service: No Current occupational status: employed Do you think of yourself as: Straight/Heterosexual Current gender identity: Male Physical Exam Narrative: EXAM NARRATIVE: General: Alert, patient appears somewhat ill Skin: Warm, dry. Head: Normocephalic, atraumatic. Neck: Supple, trachea midline. Eye: Extraocular movements are intact. Ears, nose, mouth and throat: mucosa moist. Cardiovascular: Regular, Normal peripheral perfusion. Respiratory: Patient is tachypneic, moderate increased work of breathing, oxygen saturation in the low 90s upper 80s. Musculoskeletal: Normal ROM, no deformity. Neurological: Alert and oriented, No focal neurological deficit observed. Psychiatric: Cooperative, appropriate mood & affect. Course Vital Signs: Vital signs: Vital Signs Temperature 99.2 F 11/06/24 08:00 Pulse Rate 99 11/06/24 10:00 Respiratory Rate 32 H 11/06/24 10:00 Blood Pressure 124/87 11/06/24 10:00 Pulse Oximetry 91 11/06/24 10:00 Oxygen Delivery Me thod Heated High Flow 11/06/24 10:00 Oxygen Flow Rate 60 11/06/24 07:35 Fraction of Inspir ed Oxygen 100 11/06/24 10:00 MDM - SOB/Dyspnea Medical Decision Making Endotracheal intubation Time: 1030am Confirmed: Patient, procedure, and site correct. Consent: , Emergent. Indication: Respiratory failure. Procedural sedation: Succinylcholine and etomidate . Monitoring: Cardiac, blood pressure, continuous pulse oximetry. Preparation: Pre oxygenated, Inline stabilization of cervical spine maintained, Ensured proper cuff inflation. Technique: Oral intubation: A 8 ET tube was inserted, glydescope, visualized cords and ett passing through cords. ET tube was placed at 25 cm at the lips.. Confirmation of tube placement: Bilateral chest rise, Positive color change indicated on end title CO2. Post procedure exam: Equal breath sounds. Complications: None. Performed by: Self. Total time: 10 minutes. Lab Data 11/06/24 03:27 11/06/24 03:27 Labs/Radiology: Radiology Impressions Chest CTA 10/30/24 17:51 IMPRESSION: 1. Negative for pulmonary embolus. 2. Extensive bilateral consolidative opacities, which may represent extensive pulmonary edema, hemorrhage or acute interstitial pneumonitis. Liver Ultrasound 11/04/24 17:50 IMPRESSION: Normal right upper quadrant ultrasound. Chest X-Ray 11/05/24 08:50 IMPRESSION: Decreased lung volumes with mild improvement of diffuse interstitial/ground-glass infiltrates, nonspecific as discussed above. Laboratory Results WBC 20.52 10^3/uL (3.29-11.43) H 10/30/24 17:24 RBC 4.31 10^6/uL (3.85-5.65) 10/30/24 17:24 Hgb 12.50 g/dL (11.27-16.99) 10/30/24 17:24 Hct 39.0 % (37-53) 10/30/24 17:24 MCV 90.5 fl (82-101) 10/30/24 17:24 MCH 29.0 pg (27-33) 10/30/24 17:24 MCHC 32.1 g/dL (30-55) 10/30/24 17:24 RDW 14.8 % (12.1-15.1) 10/30/24 17:24 Plt Count 794 10^3/cmm (157-399) H 10/30/24 17:24 MPV 8.8 fL (7.4-10.4) 10/30/24 17:24 Neut % (Auto) 79.9 % 10/30/24 17:24 Lymph % (Auto) 4.2 % 10/30/24 17:24 [place] % (Auto) 10.1 % 10/30/24 17:24 Eos % (Auto) 1.4 % 10/30/24 17:24 Baso % (Auto) 0.6 % 10/30/24 17:24 Neut # (Auto) 16.38 10^3/uL (1.8-7.7) H 10/30/24 17:24 Lymph # (Auto) 0.9 10^3/uL (0.8-4.8) 10/30/24 17:24 [place] # (Auto) 2.1 10^3/uL (0.2-0.9) H 10/30/24 17:24 Eos # (Auto) 0.3 10^3/uL (0.0-0.8) 10/30/24 17:24 Baso # (Auto) 0.1 10^3/uL (0.0-0.1) 10/30/24 17:24 Nucleated RBC % (auto) 0 % 10/30/24 17:24 Nucleated RBCs # 0.0 /100WBC 10/30/24 17:24 Specimen Type Arterial 10/30/24 17:11 Sample Site Radial, left 10/30/24 17:11 ABG pH 7.48 (7.35-7.45) H 10/30/24 17:11 ABG pCO2 32.7 mmHg (35-45) L 10/30/24 17:11 ABG pO2 56.6 mmHg (80.0-100.0) L 10/30/24 17:11 ABG HCO3 24.5 mmol/L (22-26) 10/30/24 17:11 ABG O2 Saturation 91.4 10/30/24 17:11 ABG Base Excess 1.5 mmol/L (-2.0-2.0) 10/30/24 17:11 Speedy Test Pos 10/30/24 17:11 A-a O2 Gradient 6.7 mmHg (5-10) 10/30/24 17:11 Hematocrit 37.4 % (42-52) L 10/30/24 17:11 Hgb O2 Saturation 89.1 % (95-100) L 10/30/24 17:11 Carboxyhemoglobin 1.7 %THgb (0.4-20.1) 10/30/24 17:11 Methemoglobin 0.8 % (0.4-1.5) 10/30/24 17:11 Total Hemoglobin 12.2 g/dL (14-18) L 10/30/24 17:11 Sodium 137.0 mmol/L (131-143) 10/30/24 17:11 Potassium 3.9 mmol/L (3.5-5.0) 10/30/24 17:11 Glucose 134.0 mg/dL (70-115) H 10/30/24 17:11 Ionized Calcium 1.2 mmol/L (1.1-1.4) 10/30/24 17:11 O2 Delivery Device Nc 10/30/24 17:11 O2 Liters/Min 5.0 % 10/30/24 17:11 Medical Affairs Manager ID [place] 10/30/24 17:11 Sodium 142 mmol/L (136-145) 10/30/24 17:24 Potassium 4.9 mmol/L (3.5-5.1) 10/30/24 17:24 Chloride 104 mmol/L (98-107) 10/30/24 17:24 Carbon Dioxide 23 mmol/L (22-29) 10/30/24 17:24 Anion Gap 19.9 (5-19) H 10/30/24 17:24 BUN 14 mg/dL (6-20) 10/30/24 17:24 Creatinine 0.5 mg/dL (0.7-1.2) L 10/30/24 17:24 GFR Calculation 170.8 mL/min (90-130) H 10/30/24 17:24 Glucose 127 mg/dL (65-115) H 10/30/24 17:24 Calculated Osmolality 296 mOsm/kg (285-295) H 10/30/24 17:24 Lactic Acid 2.3 mmol/L (0.5-2.2) H 10/30/24 17:24 Calcium 8.6 mg/dL (8.5-10.5) 10/30/24 17:24 Total Bilirubin 2.7 mg/dL (0.15-1.2) H 10/30/24 17:24 AST 43 U/L (0-40) H 10/30/24 17:24 ALT 120 U/L (0-41) H 10/30/24 17:24 Alkaline Phosphatase 313 U/L (40-130) H 10/30/24 17:24 C-Reactive Protein 251.2 mg/L (0.0-4.9) H 10/30/24 17:26 Total Protein 6.6 g/dL (6.6-8.7) 10/30/24 17:24 Albumin 3.0 g/dL (3.5-5.2) L 10/30/24 17:24 Globulin 3.6 g/dL (1.3-4.6) 10/30/24 17:24 Procalcitonin 0.45 ng/mL (0-0.5) 10/30/24 17:26 Influenza A (PCR) Negative (Negative) 10/30/24 17:40 Influenza Type B (PCR) Negative (Negative) 10/30/24 17:40 RSV (PCR) Negative (Negative) 10/30/24 17:40 SARS-CoV-2 (PCR) Negative (Negative) 10/30/24 17:40 No radiology studies performed this visit Discharge Plan Discharge Patient Disposition: Admitted As Inpatient Admit Provider: Minesh Hamm Clinical Impression: Acute hypoxic respiratory failure, Severe sepsis, Pneumonia, Transaminitis, Essential (primary) hypertension Condition: Stable Coding Level of Care Code ED Professional Security Officer for Alycia Dias
--- NOTE | 2024-11-06 11:48 | PC.NURSE ---
1040 -- ABG done, Decision made per Dr. Larkin, RT, and family to intubate prior to transfer to [facility] in [place]. 20mg Etomidate and 100 Succinylcholine given IVP, Intubated per Dr. Arce. Tolerated well, OG tube placed, sharif placed, all meds given as ordered. Fentanyl and Propofol drip started as order for sedation. 1130 -- Update given to ICU nurse at [facility]. 1140 -- To stretcher and transported per EMS crew.
[2024-11-12 16:15] LABS: Blastomyces AB Immunodiffusion Negative (Negative); Blastomyces Dermatitidis AB <1:8 titer (<1:8)
[2024-11-13 17:40] LABS: Coccidioides AB CF Serum <1:2
== END 2024-11-06 11:45 | disposition short-term general hospital (02) | DRG 871 ==
LOC: ER 17:11 → ICU 18:04
PROVIDERS: Admitting Provider Internal Medicine; Emergency Provider Family Medicine; PCP Clinical Nurse Specialist Adult Health; Visit Provider Student in an Organized Health Care Education/Training Program
DX: A41.9 Sepsis, unspecified organism (principal); J15.9 Unspecified bacterial pneumonia; J80 Acute respiratory distress syndrome; E87.20 Acidosis, unspecified; I16.0 Hypertensive urgency; I10 Essential (primary) hypertension; R65.20 Severe sepsis without septic shock; D75.839 Thrombocytosis, unspecified; R74.01 Elevation of levels of liver transaminase levels; Z79.899 Other long term (current) drug therapy; Z86.16 Personal history of COVID-19; Z11.52 Encounter for screening for COVID-19; Z72.0 Tobacco use
CPT/HCPCS: 36415; 36600; 51702; 71045; 71275; 76705; 80048; 80051; 80053; 80061; 82330; 82607; 82746; 82803; 82805; 83036; 83540; 83550; 83605; 83615; 83735; 83880; 84100; 84145; 84443; 84484; 85007; 85025; 86140; 86403; 86612; 86635; 86705; 86706; 86709; 86803; 87040; 87070; 87205; 87340; 87449; 87637; 92610; 93005; 93306; 94640; 94660; 94669; 96365; 96372; 96374; 96375; 96376; 99285; J0330; J0692; J1650; J1940; J2020; J2060; J2185; J2270; J2405; J2704; J2919; J3010; J3475; J3490; J7030; J7042; J7613; J7614; J7626; J7644; J9999; Q0144

== ENCOUNTER → 2024-11-22 09:57 | Outpatient (BNVA) | payer OTHER, SELFPAY | PROVIDERS: PCP Clinical Nurse Specialist Adult Health; Visit Provider Clinical Nurse Specialist Adult Health | DX: R74.01 Elevation of levels of liver transaminase levels (principal) | CPT/HCPCS: 80076 ==

== ENCOUNTER → 2024-12-06 10:11 | Outpatient (BNVA) | payer OTHER, SELFPAY | PROVIDERS: PCP Clinical Nurse Specialist Adult Health; Visit Provider Clinical Nurse Specialist Adult Health | DX: R74.01 Elevation of levels of liver transaminase levels (principal) | CPT/HCPCS: 80076 ==

== ENCOUNTER → 2024-12-16 09:02 | Outpatient (BNVA) | payer OTHER, SELFPAY | PROVIDERS: PCP Clinical Nurse Specialist Adult Health; Visit Provider Clinical Nurse Specialist Adult Health | DX: R74.01 Elevation of levels of liver transaminase levels (principal) | CPT/HCPCS: 80076 ==

== ENCOUNTER → 2024-12-23 10:25 | Outpatient (BNVA) | payer OTHER, SELFPAY | PROVIDERS: PCP Clinical Nurse Specialist Adult Health; Visit Provider Clinical Nurse Specialist Adult Health | DX: R74.01 Elevation of levels of liver transaminase levels (principal) | CPT/HCPCS: 80076 ==

== ENCOUNTER → 2024-12-30 08:58 | Outpatient (BNVA) | payer OTHER, SELFPAY | PROVIDERS: PCP Clinical Nurse Specialist Adult Health; Visit Provider Clinical Nurse Specialist Adult Health | DX: B44.9 Aspergillosis, unspecified (principal); R91.8 Other nonspecific abnormal finding of lung field; I70.0 Atherosclerosis of aorta | CPT/HCPCS: 71046; 80076; 85025 ==

== ENCOUNTER 2025-03-06 06:54 | Day surgery (SDC) | payer OTHER, SELFPAY ==
[2025-03-06 07:06] VITALS: BMI 26.6
--- NOTE | 2025-03-06 07:09 | P.HP_ITS ---
Same Day Surgery H&P Indication for Procedure/HPI DATE OF PROCEDURE: March 06, 2025 CHIEF COMPLAINT/INDICATIONFOR SURGICAL PROCEDURE: need for screening colonoscopy PREOP DIAGNOSIS: need for screening colonoscopy PLANNED PROCEDURE: Operation Date: 03/06/25 08:10 Proposed Procedures p Colonoscopy 19696 G0121 Z12.11(Not Applicable) - Issac Guevara MD Medications/Allergies* Home Medications ?Medication ?Instructions ?Recorded ?Confirmed ?Type inhalational spacing device #1 ea 11/22/24 01/29/25 Hi story ([employer]i[facility] spacer) isavuconazonium sulfate 186 mg 292 mg PO DAILY 5 03/03/25 History capsule (Cresemba) Allergies/Adverse Reactions Allergy/AdvReac Type Severity Reaction Status Date / Time No Known Allergies Allergy Verified 03/06/25 07:07 Pertinent History/Comorbid Conditions* Medical History (Updated 01/07/25 @ 15:14 by Vitaly Kim DO) Aspergillosis Chronic hypoxemic respiratory failure Acute hypoxic respiratory failure Severe sepsis Pneumonia Thrombocytosis Transaminitis ARDS (adult respiratory distress syndrome) Essential (primary) hypertension Surgical History (Updated 01/08/20 @ 13:31 by GREGG Don) History of hand surgery History of shoulder surgery left Family History (Updated 01/08/20 @ 13:04 by Emilee Black MA) Cancer Denies family history of Diabetes Hypertension Stroke Social History Smoking and tobacco/nicotine status: former use of tobacco/nicotine Second hand smoke exposure: No Alcohol intake: never Substance/Drug Use: never Adopted: No Caregiver/support person: No Lives independently: Yes Household members: spouse Housing: House Marital status: Number of children: 2 service: No Current occupational status: employed Do you think of yourself as: Straight/Heterosexual Current gender identity: Male Pertinent Exam Findings alert, oriented x 3 and clear to auscultation bilaterally Recommendations Surgery/Procedure today Coding Level of Care Code Acute Code for Chg Fwd
[2025-03-06 07:10] VITALS: BP 123/83; PULSE 84; RESP 18; TEMP 36.6; O2SAT 94
--- NOTE | 2025-03-06 07:54 | P.ANESASSM_ITS ---
Pre-Anesthetic Assessment Height/Weight: Height 5 ft 9 in Weight 180 lb Temp Pulse Resp BP Pulse Ox O2 Del Method 97.8 F 84 18 123/83 94 Room Air 03/06/25 07:10 03/06/25 07:10 03/06/25 07:10 03/06/25 07:10 03/06/25 07:10 03/06/25 07:10 Preop Diagnosis: need for screening colonoscopy Operation Date: 03/06/25 08:10 Proposed Procedures p Colonoscopy [id number] G0121 Z12.11(Not Applicable) - Issac Guevara MD Was Beta Timbo taken within 24 hours: N/A Was Clonidine taken within 24 hours: N/A Last intake: Intake Last Liquid Date 03/05/25 Last Liquid Time 23:45 Last Solid Date 03/04/25 Last Solid Time 20:00 Social No alcohol and No tobacco Exam alert, oriented x 3 and regular rate & rhythm Airway Submandibular: within normal limits Cervical ROM: within normal limits Mallampati: Class III Dentition: full Comments: Comments: Pina Anesthetic Plan ASA status: 3 Anesthesia: MAC Other: No prior issues with anesthesia Completed bowel prep History significant for Aspergillosis. Patient admitted for significant time in November due to RDS requiring intubation Patient has been on antifungals since discharge on . Patient states that he follows with pulmonary rehab liberally and is back to work. He is able to walk multiple flights of stairs and walk miles at a time. No home O2 Vital stable this morning Plan for MAC anesthesia Medications/Allergies Home Medications ?Medication ?Instructions ?Recorded ?Confirmed ?Last Taken ?Type Nebulizer machine and supplies #1 ea 10/28/24 01/29/25 Unknown Rx inhalational spacing device #1 ea 11/22/24 01/29/25 Un known History (Dary Whiting [facility] spacer) humidifier for supplemental oxygen #1 ea 11/28/24 Unknown Rx Portable oxygen 2Liters NC #1 ea 12/06/24 01/29/25 Un known Rx Portable oxygen concentrator #1 ea 12/19/24 01/29/25 U nknown Rx isavuconazonium sulfate 186 mg 292 mg PO DAILY 5 03/03/25 03/05/25 History capsule (Cresemba) Allergies Allergy/AdvReac Type Severity Reaction Status Date / Time No Known Allergies Allergy Verified 03/06/25 07:07 Current Medications Generic Name Dose Route Start Last Admin Trade Name Freq PRN Reason Stop Dose Admin Sodium Chloride 1,000 mls @ 15 mls/hr 03/06/25 06:57 03/06/25 07:15 Sodium Chloride 0.9% IV 03/07/25 06:56 15 mls/hr .Q24H PRN Administration COLONOSCOPY FLUIDS PFSH Anesthesia Medical History Aspergillosis Chronic hypoxemic respiratory failure Acute hypoxic respiratory failure Severe sepsis Pneumonia Thrombocytosis Transaminitis ARDS (adult respiratory distress syndrome) Essential (primary) hypertension Surgical History History of hand surgery History of shoulder surgery left Family History Other Cancer Denies family history of Diabetes Hypertension Stroke Social History Smoking and tobacco/nicotine status: former use of tobacco/nicotine Second hand smoke exposure: No Alcohol intake: never Substance/Drug Use: never Adopted: No Caregiver/support person: No Lives independently: Yes Household members: spouse Housing: House Marital status: Number of children: 2 service: No Current occupational status: employed Do you think of yourself as: Straight/Heterosexual Current gender identity: Male Data Anesthesia Cardiac Studies: Echocardiogram 10/31/24
[2025-03-06 08:40] VITALS: BP 103/63; PULSE 81; RESP 10; TEMP 36.1; O2SAT 99
[2025-03-06 08:50] VITALS: BP 95/67; PULSE 72; RESP 14; O2SAT 99
[2025-03-06 09:00] VITALS: BP 119/71; PULSE 77; RESP 18; O2SAT 96
--- NOTE | 2025-03-06 09:32 | ANE.PACU2 ---
Inpatient post-anesthesia follow up: Airway intact: Yes Vital signs: Temperature 97.0 F Pulse Rate 77 Respiratory Rate 18 Blood Pressure 119/71 Pulse Oximetry 96 Oxygen Delivery Me thod Room Air Oxygen Flow Rate 6 Fraction of Inspir ed Oxygen Hydration adequate: Yes Nausea and vomiting: No Pain level: 1 Mental status: Baseline
== END 2025-03-06 09:32 | disposition home or self-care (01) ==
PROVIDERS: PCP Family Medicine; Visit Provider Surgery
PROC: 0DJD8ZZ Inspection of Lower Intestinal Tract, Via Natural or Artificial Opening Endoscopic (ICD-10-PCS; CPT 45378; principal; 2025-03-06 08:10)
DX: Z12.11 Encounter for screening for malignant neoplasm of colon (principal); D12.5 Benign neoplasm of sigmoid colon; D12.2 Benign neoplasm of ascending colon; D12.3 Benign neoplasm of transverse colon; I10 Essential (primary) hypertension; Z87.891 Personal history of nicotine dependence; Z79.899 Other long term (current) drug therapy
CPT/HCPCS: 45385; 88305; J2704; J7030

== ENCOUNTER → 2025-04-11 10:27 | Outpatient (BNVA) | payer OTHER, SELFPAY | PROVIDERS: PCP Family Medicine; Visit Provider Family Medicine | DX: R74.01 Elevation of levels of liver transaminase levels (principal) | CPT/HCPCS: 80076 ==

== ENCOUNTER → 2025-05-13 14:49 | Outpatient (BNVA) | payer OTHER, SELFPAY | PROVIDERS: PCP Family Medicine; Visit Provider Family Medicine | DX: Z00.00 Encounter for general adult medical examination without abnormal findings (principal); R74.01 Elevation of levels of liver transaminase levels; B44.9 Aspergillosis, unspecified; R53.83 Other fatigue; R79.89 Other specified abnormal findings of blood chemistry | CPT/HCPCS: 80076; 82040; 84153; 84270; 84403; 85025 ==

== ENCOUNTER → 2025-09-02 08:26 | Outpatient (BNVA) | payer OTHER, SELFPAY | PROVIDERS: PCP Family Medicine; Visit Provider Family Medicine | DX: B44.9 Aspergillosis, unspecified (principal); R74.01 Elevation of levels of liver transaminase levels | CPT/HCPCS: 80076 ==